=== PATIENT | female | born 1985 | race Caucasian/White ===

== ENCOUNTER 2017-04-21 10:04 | Day surgery (SDC) | payer OTHER ==
[~2017-04-21] VITALS: Ht 154.9 cm; Wt 71.2 kg
[~2017-04-21 10:04] MED LIST: FERR-57 PO; HYDR1CAP2 PO; HYDR1TAB PO; OXYC-12 PO; PREN1TAB39 PO
--- OUTSIDE RECORDS SUMMARY | 2017-04-21 10:09 | XMS REPORT ---
Author Author KAREN SERRANO Organization [facility] Address [address] [place] [address] Care Team Providers Care Superintendent Factory Name Role Phone KAREN SERRANO Unavailable PROBLEMS Type Condition ICD9-CM Code [id number] Code Onset Dates Condition Status SNOMED Code Assessment Seasonal allergic rhinitis due to pollen J30.1 Jan, Active 13858224 Assessment Overweight (BMI 25.0-29.9) E66.3 Jan, Active 781984300 Problem Screening for malignant neoplasm of the cervix V76.2 Active 889435929 Problem VARICELLA DX V05.4 Active Problem Unspecified viral infection, in conditions classified elsewhere and of unspecified site 079.99 Active 14203663 Problem state, incidental V22.2 Active 78091455 Problem General counseling for prescription of oral contraceptives V25.01 Active 090999296 Problem Unspecified breast screening V76.10 Active 758314740 ALLERGIES Substance Reaction Event Type Date Status N.K.D.A. Unknown Non Drug Allergy Jan, Unknown SOCIAL HISTORY No smoking Hx information available PLAN OF CARE VITAL SIGNS Height 60.5 in 2016-01-09 Weight 153.0 lbs 2016-01-09 Heart Rate 70 bpm 2016-01-09 Respiratory Rate 18 2016-01-09 BMI 29.39 kg/m2 2016-01-09 Blood pressure systolic 100 mmHg 2016-01-09 Blood pressure diastolic 68 mmHg 2016-01-09 MEDICATIONS Medication Instructions Dosage Frequency Start Date End Date Duration Status Fluticasone Propionate 50 MCG/ACT Nasally Once a day 1 spray in each nostril 24h Jan, 30 day(s) Active RESULTS No Results PROCEDURES Procedure Date Ordered Related Diagnosis Body Site Office Visit, Est Pt., Level 3 Jan 09, 2016 IMMUNIZATIONS No Known Immunizations
[2017-04-21 10:10] VITALS: BP 115/79
--- OUTSIDE RECORDS SUMMARY | 2017-04-21 10:10 | XMS REPORT | Continuity of Care Document ---
Author Author [facility] of [facility] Address Unknown Phone Unavailable Allergies Active Description Code Type Severity Reaction Onset Reported/Identified Relationship to Patient Clinical Status Yes No Known Drug Allergies [id number] Drug Allergy Unknown N/A 01/25/2011 Medications There is no data. 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, Routine 07/12/2010 V74.5 Std Screen 07/12/2010 FRANKLIN DO, COCO K V72.31 Casino Cage Cashier Exam, Routine 07/12/2010 FRANKLIN DO, COCO K V74.5 Std Screen 07/12/2010 FRANKLIN DO, COCO K V72.31 Casino Cage Cashier Exam, Routine 07/12/2010 FRANKLIN DO, COCO K V74.5 Std Screen 07/12/2010 ABILIO SHUTTLE THREADER, GARRICK A V72.31 Casino Cage Cashier Exam, Routine 07/12/2010 ABILIO SHUTTLE THREADER, GARRICK A V74.5 Std Screen 07/12/2010 RAJOTTE SHUTTLE THREADER, FELECIA A V72.31 Casino Cage Cashier Exam, Routine 07/12/2010 RAJOTTE SHUTTLE THREADER, FELECIA A V74.5 Std Screen 10/18/2010 646.60 Compl Of - Uti 10/18/2010 646.60 Compl Of - Uti 10/18/2010 FRANKLIN DO, COCO K 646.60 Compl Of - Uti 10/18/2010 COCO FRANKLIN DO K 646.60 Compl Of - Uti 10/18/2010 GARRICK KNOX APRN A 646.60 Compl Of - Uti 10/18/2010 FELECIA NIEVES APRN A 646.60 Compl Of - Uti 10/24/2010 616.10 Vaginitis And Vulvovaginitis Unspecified 10/24/2010 616.10 Vaginitis And Vulvovaginitis Unspecified 10/24/2010 COCO FRANKLIN DO K 616.10 Vaginitis And Vulvovaginitis Unspecified 10/24/2010 COCO FRANKLIN DO K 616.10 Vaginitis And Vulvovaginitis Unspecified 10/24/2010 GARRICK KNOX APRN A 616.10 Vaginitis And Vulvovaginitis Unspecified 10/24/2010 FELECIA NIEVES APRN A 616.10 Vaginitis And Vulvovaginitis Unspecified 11/21/2010 649.60 Uterine Size Date Discrepancy - Lga 11/21/2010 649.60 Uterine Size Date Discrepancy - Lga 11/21/2010 COCO FRANKLIN DO K 649.60 Uterine Size Date Discrepancy - Lga 11/21/2010 COCO FRANKLIN DO K 649.60 Uterine Size Date Discrepancy - Lga 11/21/2010 GARRICK KNOX APRN A 649.60 Uterine Size Date Discrepancy - Lga 11/21/2010 FELECIA NIEVES APRN A 649.60 Uterine Size Date Discrepancy - Lga 12/19/2010 657.00 Polyhydramnios Unspecified As To Episode Of Care 12/19/2010 698.9 Unspecified Pruritic Disorder 12/19/2010 657.00 Polyhydramnios Unspecified As To Episode Of Care 12/19/2010 698.9 Unspecified Pruritic Disorder 12/19/2010 COCO FRANKLIN DO 657.00 Polyhydramnios Unspecified As To Episode Of Care 12/19/2010 COCO FRANKLIN DO 698.9 Unspecified Pruritic Disorder 12/19/2010 COCO FRANKLIN DO 657.00 Polyhydramnios Unspecified As To Episode Of Care 12/19/2010 COCO FRANKLIN DO 698.9 Unspecified Pruritic Disorder 12/19/2010 REYNA KNOX APRNIDI A 657.00 Polyhydramnios Unspecified As To Episode Of Care 12/19/2010 REYNA KNOX APRNIDI A 698.9 Unspecified Pruritic Disorder 12/19/2010 FELECIA NIEVES APRN A 657.00 Polyhydramnios Unspecified As To Episode Of Care 12/19/2010 EZEQUIEL FOSTERNJUAN LUISYL A 698.9 Unspecified Pruritic Disorder 01/09/2011 649.60 Uterine Size Date Discrepancy Unspecified As To Episode Of Care Or Not Applicable 01/09/2011 649.60 Uterine Size Date Discrepancy Unspecified As To Episode Of Care Or Not Applicable 01/09/2011 COCO FRANKLIN DO 649.60 Uterine Size Date Discrepancy Unspecified As To Episode Of Care Or Not Applicable 01/09/2011 COCO FRANKLIN DO 649.60 Uterine Size Date Discrepancy Unspecified As To Episode Of Care Or Not Applicable 01/09/2011 GARRICK KNOX APRN A 649.60 Uterine Size Date Discrepancy Unspecified As To Episode Of Care Or Not Applicable 01/09/2011 FELECIA NIEVES APRN A 649.60 Uterine Size Date Discrepancy Unspecified As To Episode Of Care Or Not Applicable 01/17/2011 V04.81 Flu Shot 01/17/2011 V04.81 Flu Shot 01/17/2011 COCO FRANKLIN DO V04.81 Flu Shot 01/17/2011 COCO FRANKLIN DO V04.81 Flu Shot 01/17/2011 ABILIO FOSTERNREYNAGARRICK A V04.81 Flu Shot 01/17/2011 EZEQUIEL JAMES FELECIA A V04.81 Flu Shot 03/11/2011 715.90 OSTEOARTHROSIS UNSPECIFIED WHETHER GENERALIZED OR LOCALIZED INVOLVING UNSPECIFIED SITE 03/11/2011 V24.2 ROUTINE FOLLOW-UP 03/11/2011 V25.09 CONTRACEPTIVE COUNSELING - GENERAL 03/11/2011 V25.40 CONTRACEPTION SURVEILLANCE EXAM 03/11/2011 V25.49 CONTRACEPTION SURVEILLANCE (REPEAT RX) 03/11/2011 715.90 OSTEOARTHROSIS UNSPECIFIED WHETHER GENERALIZED OR LOCALIZED INVOLVING UNSPECIFIED SITE 03/11/2011 V24.2 ROUTINE FOLLOW-UP 03/11/2011 V25.09 CONTRACEPTIVE COUNSELING - GENERAL 03/11/2011 V25.40 CONTRACEPTION SURVEILLANCE EXAM 03/11/2011 V25.49 CONTRACEPTION SURVEILLANCE (REPEAT RX) 03/11/2011 FRANKLIN DOLATANYAA K 715.90 OSTEOARTHROSIS UNSPECIFIED WHETHER GENERALIZED OR LOCALIZED INVOLVING UNSPECIFIED SITE 03/11/2011 FRANKLIN DO COCO K V24.2 ROUTINE FOLLOW-UP 03/11/2011 FRANKLIN DO COCO K V25.09 CONTRACEPTIVE COUNSELING - GENERAL 03/11/2011 FRANKLIN DO COCO K V25.40 CONTRACEPTION SURVEILLANCE EXAM 03/11/2011 FRANKLIN DO COCO K V25.49 CONTRACEPTION SURVEILLANCE (REPEAT RX) 03/11/2011 FRANKLIN DO COCO K 715.90 OSTEOARTHROSIS UNSPECIFIED WHETHER GENERALIZED OR LOCALIZED INVOLVING UNSPECIFIED SITE 03/11/2011 FRANKLIN DO COCO K V24.2 ROUTINE FOLLOW-UP 03/11/2011 FRANKLIN DO COCO K V25.09 CONTRACEPTIVE COUNSELING - GENERAL 03/11/2011 LATANYA FRANKLIN DOA K V25.40 CONTRACEPTION SURVEILLANCE EXAM 03/11/2011 LATANYA FRANKLIN DOA K V25.49 CONTRACEPTION SURVEILLANCE (REPEAT RX) 03/11/2011 GARRICK KNOX APRN 715.90 OSTEOARTHROSIS UNSPECIFIED WHETHER GENERALIZED OR LOCALIZED INVOLVING UNSPECIFIED SITE 03/11/2011 GARRICK KNOX APRN A V24.2 ROUTINE FOLLOW-UP 03/11/2011 GARRICK KNOX APRN A V25.09 CONTRACEPTIVE COUNSELING - GENERAL 03/11/2011 REYNA KNOX APRNIDI A V25.40 CONTRACEPTION SURVEILLANCE EXAM 03/11/2011 GARRICK KNOX APRN A V25.49 CONTRACEPTION SURVEILLANCE (REPEAT RX) 03/11/2011 FELECIA NIEVES APRN 715.90 OSTEOARTHROSIS UNSPECIFIED WHETHER GENERALIZED OR LOCALIZED INVOLVING UNSPECIFIED SITE 03/11/2011 JUAN LUIS NIEVES APRNYL A V24.2 ROUTINE FOLLOW-UP 03/11/2011 JUAN LUIS NIEVES APRNYL A V25.09 CONTRACEPTIVE COUNSELING - GENERAL 03/11/2011 JUAN LUIS NIEVES APRNYL A V25.40 CONTRACEPTION SURVEILLANCE EXAM 03/11/2011 JUAN LUIS NIEVES APRNYL A V25.49 CONTRACEPTION SURVEILLANCE (REPEAT RX) 07/30/2012 V25.01 CONTRACEPTION - ORAL CONTRACEPTION 07/30/2012 V76.10 BREAST CANCER SCREENING 07/30/2012 COCO FRANKLIN DO V25.01 CONTRACEPTION - ORAL CONTRACEPTION 07/30/2012 COCO FRANKLIN DO V76.10 BREAST CANCER SCREENING 07/30/2012 COCO FRANKLIN DO V25.01 CONTRACEPTION - ORAL CONTRACEPTION 07/30/2012 COCO FRANKLIN DO V76.10 BREAST CANCER SCREENING 07/30/2012 GARRICK KNOX APRN A V25.01 CONTRACEPTION - ORAL CONTRACEPTION 07/30/2012 GARRICK KNOX APRN A V76.10 BREAST CANCER SCREENING 07/30/2012 FELECIA NIEVES APRN A V25.01 CONTRACEPTION - ORAL CONTRACEPTION 07/30/2012 FELECIA NIEVES APRN A V76.10 BREAST CANCER SCREENING 09/24/2012 COCO FRANKLIN DO V76.2 CERVICAL CANCER SCREENING (PAP SMEAR) 09/24/2012 COCO FRNAKLIN DO V76.2 CERVICAL CANCER SCREENING (PAP SMEAR) 09/24/2012 GARRICK KNOX APRN A V76.2 CERVICAL CANCER SCREENING (PAP SMEAR) 09/24/2012 FELECIA NIEVES APRN A V76.2 CERVICAL CANCER SCREENING (PAP SMEAR) 07/27/2013 COCO FRANKLIN DO V05.4 VARICELLA DX 07/27/2013 GARRICK KNOX APRN A V05.4 VARICELLA DX 07/27/2013 FELECIA NIEVES APRN A V05.4 VARICELLA DX 05/02/2014 FELECIA NIEVES APRN A 079.99 VIRAL SYNDROME 05/02/2014 FELECIA NIEVES APRN A V22.2 INCIDENTAL 05/11/2014 SENA BILLS DO Ot 644.03 THRT PRASANTH LABOR-ANTEPART 05/11/2014 SENA BILLS DO Ot 654.23 PREV DELIVERY, ANTEPARTUM COND 05/11/2014 SENA BILLS DO Ot 698.9 PRURITIC DISORDER NOS 05/25/2014 WILFRIDO SHEA, ELLSI P Ot 576.8 05/25/2014 WILFRIDO SHEA, ELLIS P Ot 646.83 06/13/2014 WILFRIDO SHEA, ELLIS P Ot 576.8 06/15/2014 WILFRIDO SHEA, ELLIS P Ot 576.8 06/15/2014 WILFRIDO SHEA, ELLIS P Ot 646.83 06/29/2014 WILFRIDO SHEA, ELLIS P Ot 576.8 06/29/2014 WILFRIDO SHEA, ELLIS P Ot 646.83 06/29/2014 WILFRIDO SHAE, ELLIS P Ot 576.8 11/24/2014 WILFRIDO SHEA, ELLIS P Ot 576.8 11/24/2014 WILFRIDO SHEA, ELLIS P Ot 646.83 11/24/2014 WILFRIDO SHEA, ELLIS P Ot 576.8 11/29/2014 WILFRIDO SHEA, ELLIS P Ot 576.8 11/29/2014 WILFRIDO SHEA, ELLIS P Ot 646.83 11/29/2014 WILFRIDO SHEA, ELLIS P Ot 576.8 08/13/2015 WILFRIDO SHEA, ELLIS P Ot 576.8 08/13/2015 WILFRIDO SHEA, ELLIS P Ot 646.83 08/13/2015 WILFRIDO SHEA, ELLIS P Ot 576.8 11/22/2015 WILFRIDO SHEA, ELLIS P Ot 576.8 DIS OF BILIARY TRACT NEC 11/22/2015 WILFRIDO SHEA, ELLIS P Ot 646.83 PREG COMPL NEC-ANTEPART 11/22/2015 WILFRIDO SHEA, ELLIS P Ot 576.8 DIS OF BILIARY TRACT NEC 12/04/2015 WILFRIDO SHEA, ELLIS P Ot 576.8 DIS OF BILIARY TRACT NEC 12/04/2015 WILFRIDO SHEA, ELLIS P Ot 646.83 PREG COMPL NEC-ANTEPART 12/04/2015 WILFRIDO SHEA, ELLIS P Ot 576.8 DIS OF BILIARY TRACT NEC 12/04/2015 WILFRIDO SHEA, ELLIS P Ot 576.8 DIS OF BILIARY TRACT NEC 12/04/2015 WILFRIDO SHEA, ELLIS P Ot 646.83 PREG COMPL NEC-ANTEPART 12/04/2015 WILFRIDO SHEA, ELLIS P Ot 576.8 DIS OF BILIARY TRACT NEC 12/04/2015 WILFRIDO SHEA, ELLIS P Ot 576.8 DIS OF BILIARY TRACT NEC 12/04/2015 WILFRIDO SHEA, ELLIS P Ot 646.83 PREG COMPL NEC-ANTEPART 12/04/2015 WILFRIDO SHEA, ELLIS P Ot 576.8 DIS OF BILIARY TRACT NEC 12/06/2015 WILFRIDO SHEA, ELLIS P Ot 576.8 DIS OF BILIARY TRACT NEC 12/06/2015 WILFRIDO SHEA, ELLIS P Ot 646.83 PREG COMPL NEC-ANTEPART 12/06/2015 WILFRIDO SHEA, ELLIS P Ot 576.8 DIS OF BILIARY TRACT NEC 12/08/2015 WILFRIDO SHEA, ELLIS P Ot 576.8 DIS OF BILIARY TRACT NEC 12/08/2015 WILFRIDO SHEA, ELLIS P Ot 646.83 PREG COMPL NEC-ANTEPART 12/08/2015 WILFRIDO SHEA, ELLIS P Ot 576.8 DIS OF BILIARY TRACT NEC 01/02/2016 WILFRIDO SHEA, ELLIS P Ot 576.8 DIS OF BILIARY TRACT NEC 01/02/2016 WILFRIDO SHEA, ELLIS P Ot 646.83 PREG COMPL NEC-ANTEPART 01/02/2016 WILFRIDO SHEA, ELLIS P Ot 576.8 DIS OF BILIARY TRACT NEC Procedures Code [place] [address] PAP SMEAR 09/24/2012 Q0091 PAP SMEAR OBTAIN SMEAR 09/24/2012 95599 INFLUENZA A & B (IN-HOUSE) 05/02/2014 Results There is no data. Encounters ACCT No. Visit Date/Time Discharge Status Pt. Type Provider Facility Loc./Unit Complaint [id number] 05/02/2014 11:50:00 05/02/2014 23:59:59 CLS Outpatient FELECIA NIEVES APRN [id number] 08/11/2013 17:14:00 08/11/2013 23:59:59 CLS Outpatient GARRICK KNOX APRN [id number] 07/27/2013 15:38:00 07/27/2013 23:59:59 CLS Outpatient COCO FRANKLIN DO [id number] 09/24/2012 09:31:00 09/24/2012 23:59:59 CLS Outpatient COCO FRANKLIN DO [id number] 07/30/2012 13:42:00 07/30/2012 23:59:59 CLS Outpatient [id number] 05/28/2011 10:46:00 05/28/2011 23:59:59 CLS Outpatient [id number] 05/25/2014 09:10:00 05/25/2014 23:59:59 CLS Outpatient ELLIS ANNA MD [facility] RAD CHOLESTASIS [id number] 05/16/2014 13:28:00 05/16/2014 23:59:59 CLS Outpatient ELLIS ANNA MD [facility] RAD CHOLESTASIS [id number] 05/11/2014 12:45:00 05/11/2014 20:25:00 DIS Outpatient SENA BILLS DO [facility] WSo C/O CONTRACTIONS
[2017-04-21] MEDS ORDERED: ceFAZolin 1 GM/NS 50 ML IVPB IV ONE ×2 (10:30)
[2017-04-21] MEDS ORDERED: CATHETER FLUSH 10 ML SYR IV PRN (10:30)
[2017-04-21 10:39] LABS: BASOPHILS % (AUTO) 0 % (0-10); EOSINOPHILS # (AUTO) 0.2 10^3/uL (0.0-0.3); EOSINOPHILS % (AUTO) 3 % (0-10); LYMPHOCYTES # (AUTO) 2.2 X 10^3 (1.0-4.0); LYMPHOCYTES % (AUTO) 25 % (12-44); MEAN CORPUSCULAR HEMOGLOBIN 32 PG (25-34); MEAN CORPUSCULAR HGB CONC 34 G/DL (32-36); MEAN CORPUSCULAR VOLUME 93 FL (80-99); MEAN PLATELET VOLUME 8.9 FL (7.4-10.4); MONOCYTES # (AUTO) 0.4 X 10^3 (0.0-1.0); MONOCYTES % (AUTO) 5 % (0-12); NEUTROPHILS # (AUTO) 5.8 X 10^3 (1.8-7.8); NEUTROPHILS % (AUTO) 67 % (42-75); PLATELET COUNT 386 10^3/uL (130-400); RED BLOOD COUNT 4.24 10^6/uL (4.35-5.85); RED CELL DISTRIBUTION WIDTH 12.1 % (10.0-14.5); WHITE BLOOD COUNT 8.6 10^3/uL (4.3-11.0)
[2017-04-21] MEDS ORDERED: proPOfol 200 MG/20 ML (DIPRIVAN) VIAL IV ONE (11:18)
[2017-04-21] MEDS ORDERED: LIDOCAINE PF 2% 5 ML (XYLOCAINE) VIAL ONE ×2 (11:18→12:44)
[2017-04-21] MEDS ORDERED: fentaNYL INJECTION 100 MCG/2 ML AMP ONE (11:19)
[2017-04-21] MEDS ORDERED: MIDAZOLAM 2 MG/2 ML (VERSED) VIAL ONE (11:19)
[2017-04-21] MEDS ORDERED: D5 LR IV SOLUTION 1,000 ML IV SCH (12:05)
[2017-04-21] MEDS ORDERED: OXYC-465 PO (12:08)
--- NOTE | 2017-04-21 12:09 | Progress Note-Pre Operative ---
Pre-Operative Progress Note H&P Reviewed The H&P was reviewed, patient examined and no changes noted. Date Seen by Provider: Apr 21, 2017 Time Seen by Provider: 12:09 Date H&P Reviewed: Apr 21, 2017 Time H&P Reviewed: 12:09 Pre-Operative Diagnosis: missed /intrauterine demise ZULLY GARAY MD Apr 21, 2017 12:09 pm
--- NOTE | 2017-04-21 12:09 | Discharge Instructions ---
Discharge Instructions Discharge Medications New, Converted or Re-Newed RX: RX on Chart Patient Instructions Patient Instructions: as directed Return to The Hospital For: as directed Activity & Diet Discharge Diet: No Restrictions Activity as Tolerated: No Orders-Post D/C & Referrals Follow Up Appt: Call to make follow up appt. for patient in 2 weeks. Activity: Rest for 24 hours, than as tolerated. Diet: As tolerated-Clear Liquids only if nauseated. May shower or tub bathe as desired. No driving for 24 hours, no alcoholic beverages for 24 hours, and nothing per vagina (no tampons, douching, or intercourse) for 2 weeks. Patient to return to the clinic as soon as possible for: Temperature greater than 101F, Severe Pain, Foul discharge from incision or vagina, Excessive Bleeding (more than a period). ZULLY GARAY MD Apr 21, 2017 12:09 pm
--- NOTE | 2017-04-21 12:10 | Progress Note-Post Operative ---
Post-Operative Progess Note Surgeon (s)/Manager Regional (s) Surgeon ZULLY GARAY MD Manager Regional: none Pre-Operative Diagnosis missed /intrauterine demise Post-Operative Diagnosis same with pathology pending Procedure & Operative Findings Date of Procedure 04/21/17 Procedure Performed/Findings D&C Anesthesia Type Gen. endotracheal Estimated Blood Loss Estimated blood loss (mL): lless than 100cc Specimens/Packing Specimens Removed products of conception/uterine contents Packing: none ZULLY GARAY MD Apr 21, 2017 12:10
[2017-04-21] MEDS ORDERED: oxyCODONE/APAP 10/325MG (PERCOCET 10) TABLET PO PRN (12:15)
[2017-04-21] MEDS ORDERED: KETOROLAC 30 MG/ML VIAL IVP ONE ×2 (12:15→13:00)
[2017-04-21] MEDS ORDERED: ONDANSETRON 4 MG/2 ML (SDV) Z0FRAN IVP PRN ×2 (12:15→13:00)
[2017-04-21] MEDS ORDERED: PROMETHAZINE INJ 25 MG/ML (PHENERGAN) AMP IM ONE (12:15)
[2017-04-21] MEDS ORDERED: MEPERIDINE (DEMEROL) INJ 100 MG/ML IM ONE (12:15)
[2017-04-21] MEDS ORDERED: DEXAMETHASONE 10 MG/ML (DECADRON) 1 ML VIAL ONE (12:44)
[2017-04-21] MEDS ORDERED: ONDANSETRON 4 MG/2 ML (SDV) Z0FRAN ONE (12:44)
--- NOTE | 2017-04-21 12:56 | History & Physical ---
History and Physical Date Seen by Provider: Apr 21, 2017 Time Seen by Provider: 12:10 this patient is a 32-year-old female who is acting a surrogate for this . initially started a viable however demise was diagnosed last week. Patient presents now for D&C. Allergies are none Medications are vitamins Medical social and surgical history is as well as family and obstetric histories are per her H&P of March 2017 H ENT exam is normal Neck is supple no lymphadenopathy no thyromegaly Abdomen is soft nontender nondistended Extreme show clubbing cyanosis. There is no Homans sign. Pelvic exam is deferred Assessment and plan partially 9 week with demise/missed . Plan is for D&C. Surgical risk complication recovering follow-up have been fully discussed. All the patient's questions were answered and she is prepared to proceed. Allergies and Home Medications Allergies Coded Allergies: No Known Drug Allergies (Unverified , 01/25/11) Home Medications Hydrocodone Bit/Acetaminophen 1 Each Capsule, 1 EACH PO Q 4 - 6 HRS PRN, ( Reported) Oxycodone HCl/Acetaminophen 1 Each Tablet, 1-2 TAB PO Q4H PRN for PAIN, #30 Prescribed by: ZULLY MENDEZ on 04/21/17 1208 ZULLY GARAY MD Apr 21, 2017 12:55 pm
[2017-04-21] MEDS ORDERED: fentaNYL INJECTION 100 MCG/2 ML AMP IVP PRN (13:00)
[2017-04-21] MEDS ORDERED: morphine INJ 10 MG/ML 1ML (SYR OR VIAL) IVP PRN (13:00)
[2017-04-21 13:50] VITALS: BP 108/71
[2017-04-21 14:20] VITALS: BP 103/73
--- NOTE | 2017-04-21 20:44 | OPERATIVE REPORT ---
DATE OF SERVICE: 04/21/2017 PREOPERATIVE DIAGNOSIS: Intrauterine demise/missed . POSTOPERATIVE DIAGNOSIS: Intrauterine demise/missed . OPERATIVE PROCEDURE: D and C. OPERATIVE DESCRIPTION: With the patient in the supine position under satisfactory general anesthesia, she was repositioned in dorsal lithotomy position in candycane stirrups and prepped and draped in the usual process for vaginal surgery. The urinary bladder was emptied with a straight catheter. The gestational sac was present at the cervix. It was removed intact and sent to pathology for handling. The patient had requested genetic studies on this tissue. The bag was intact with a small fetus visible inside. The cervix was now grasped anteriorly with single tooth tenaculum. The uterus was sounded to 9 cm with the uterine sound. The cervix was then serially dilated with Zoltan dilators to accommodate. A #10 curved sucking curet was introduced and the uterine cavity curettaged with removal of a moderate amount of trophoblastic appearing tissue, placental tissue, some blood clot and some debris. The uterine cavity was then sharply curettaged in all 4 quadrants and suction curet was reintroduced and all blood clot and debris evacuated from the uterus. The tenaculum was removed. There was no bleeding from the puncture sites. There was no bleeding from the cervical os. The uterus had been 10 to 12 week size prior to initiating the procedure. It was now 8 to 10 week size and nicely contracted. The patient was uneventfully awakened now from her general anesthesia and transferred to recovery room in stable condition with plans for discharge home PAR. Sponge and needle counts were correct. ESTIMATED BLOOD LOSS: Less than 100 mL. The patient tolerated the procedure well. Job ID: [id number] DocumentID: [id number] Dictated Date: 04/21/2017 12:37:50 Deep Tissue Massage Therapist Date: 04/21/2017 20:43:51 Dictated By: ZULLY GARAY MD
== END 2017-04-21 14:40 | disposition home or self-care (01) ==
LOC: SDC 10:04
PROVIDERS: ATTEND Obstetrics & Gynecology
DX: O02.1 Missed abortion (principal); Z3A.09 9 weeks gestation of pregnancy
CPT/HCPCS: 36415; 85025; 86850; 86900; 86901; 87081; 88233; 88262

== ENCOUNTER 2018-03-06 09:50 | Outpatient (CLI) | payer OTHER ==
[~2018-03-06 09:50] MED LIST changes: +OXYC-465 PO
[2018-03-06 10:47] VITALS: BP 110/57
--- NOTE | 2018-03-09 17:50 | Physician Query-Final Dx ---
MALENA HARRIS 03/09/18 1750: Clinic Account Progress/Dx Physician Query: Please give diagnosis Date of Service Mar 06, 2018 at 09:50 ZULLY GARAY MD 03/10/18 0738: Clinic Account Progress/Dx DIAGNOSIS: Diagnosis DECREASED MOVEMENT AT 33 WEEKS GESTATION MALENA HARRIS Mar 09, 2018 17:50 ZULLY GARAY MD Mar 10, 2018 07:38
== END 2018-03-06 10:31 | disposition home or self-care (01) ==
LOC: WSo 09:50 → LDRP 09:50 → WSo 10:31
PROVIDERS: ATTEND Obstetrics & Gynecology
DX: O36.8130 Decreased fetal movements, third trimester, not applicable or unspecified (principal); Z3A.33 33 weeks gestation of pregnancy
CPT/HCPCS: 59025

== ENCOUNTER 2018-04-14 08:47 | Outpatient (CLI) | payer OTHER ==
[~2018-04-14] VITALS: Ht 154.9 cm; Wt 88.0 kg
[2018-04-14] MEDS ORDERED: PNV1TABL81 PO (08:58)
[2018-04-14 09:04] VITALS: BP 108/65
== END 2018-04-14 09:20 | disposition home or self-care (01) ==
LOC: PREOP 08:47
PROVIDERS: ATTEND Obstetrics & Gynecology
DX: Z01.818 Encounter for other preprocedural examination (principal)
CPT/HCPCS: 87081

== ENCOUNTER 2018-04-21 13:00 | Inpatient (IN) | payer OTHER ==
[~2018-04-21] VITALS: Ht 154.9 cm; Wt 88.5 kg
[~2018-04-21 13:00] MED LIST changes: +PNV1TABL81 PO
--- OUTSIDE RECORDS SUMMARY | 2018-04-24 09:26 | XMS REPORT ---
Author Author FREDERIC BOLANOS [facility] Address [address] [place] [address] Care Team Providers Care Administrative Asst Name Role Phone FREDERIC BOLANOS Unavailable PROBLEMS Type Condition ICD9-CM Code FQL68-RY Code Onset Dates Condition Status SNOMED Code Problem Unspecified viral infection, in conditions classified elsewhere and of unspecified site 079.99 Active 85541605 Problem state, incidental V22.2 Active 98994181 Problem Unspecified breast screening V76.10 Active 109390354 Problem Screening for malignant neoplasm of the cervix V76.2 Active 302510495 Problem VARICELLA DX V05.4 Active 964333957 Problem General counseling for prescription of oral contraceptives V25.01 Active [id number] ALLERGIES No Information ENCOUNTERS Encounter Location Date Diagnosis [place] [address] [address] Dec, Encounter for immunization Z23 [place] [address] [address] Aug, Encounter for other contraceptive management Z30.8 [place] [address] [address] Aug, [place] [address] [address] Aug, Routine gynecological examination Z01.419 [facility] [address] [address] Jul, Strain of neck muscle, initial encounter S16.1XXA [place] [address] [address] 06 Jan, 2016 Seasonal allergic rhinitis due to pollen J30.1 and Overweight (BMI 25.0-29.9) E66.3 [facility] [address] [place] [id number] [address] 18 Jun, 2015 Encounter for test Z32.00 [facility] [id number] [address] Aug, [facility] [id number] [address] Apr, [facility] [address] [facility] [id number] [address] Apr, [facility] [address] [place] [id number] [place] [address] Apr, [facility] [id number], [place] [address] Apr, [facility] [id number] [address] Aug, [facility] [id number] [address] Aug, [facility] [id number], [place] [address] Jul, [facility] [id number] [address] Jul, [facility] [id number], [place] [address] Jun, [facility] [address] [place] [id number] [address] Jun, [facility] [address] [place] [id number] [address] Nov, [facility] [address] [facility] [id number], [place] [address] September, [facility] [id number], [place] [address] September, [facility] [address] [id number] [place] [address] September, [facility] [address] [id number] [place] [address] September, [facility] [place] [facility] [address] [id number] [place] [address] Jul, [facility] [place] [facility] [address] [id number] [place] [address] Jul, [facility] [place] [facility] [address] [id number] [place] [address] Oct, [facility] [place] [facility] [address] [id number] [place] [address] Aug, [facility] [place] [facility] [address] [id number] [place] [address] May, [facility] [place] [facility] [address] [id number] [place] [address] Mar, [facility] [place] [facility] [address] [id number] [place] [address] Mar, [facility] [place] [facility] [address] [id number] [place] [address] 19 Jan, 2011 [facility] [place] [facility] [address] [id number] [place] [address] 15 Jan, 2011 [facility] [place] [facility] [address] [id number] [place] [address] 17 Dec, 2010 [facility] [place] [facility] [address] [id number] [place] [address] 20 Nov, 2010 [facility] [place] [facility] [address] [id number] [place] [address] 16 Oct, 2010 [facility] [place] [facility] [address] [id number] [place] [address] 10 Jul, 2010 [facility] [place] [facility] [address] [id number] [place] [address] 10 Jun, 2010 IMMUNIZATIONS Vaccine Route Administration Date Status TDAP (BOOSTRIX) IM Intramuscular Dec 31, 2017 Administered SOCIAL HISTORY Never Assessed REASON FOR VISIT Immunization(s)--tcuppettRN PLAN OF CARE VITAL SIGNS MEDICATIONS Unknown Medications RESULTS No Results PROCEDURES Procedure Date Ordered Result Body Site TDAP (BOOSTRIX) Dec 31, 2017 SINGLE IMMUNIZATION ADMIN Dec 31, 2017 INSTRUCTIONS MEDICATIONS ADMINISTERED No Known Medications MEDICAL (GENERAL) HISTORY Type Description Date Surgical History C- section x 2 Surgical History cholecystectomy
--- OUTSIDE RECORDS SUMMARY | 2018-04-24 09:26 | XMS REPORT | Continuity of Care Document ---
Author Author [facility] Address Unknown Phone Unavailable Allergies Active Description Code Type Severity Reaction Onset Reported/Identified Relationship to Patient Clinical Status Yes No Known Drug Allergies [id number] Drug Allergy Unknown N/A 01/25/2011 Medications There is no data. Problems Date Dx Coded Attending Type Code Diagnosis Diagnosed By 06/14/2010 V22.0 , Normal First 06/14/2010 V22.0 , Normal First 06/14/2010 FRANKLIN DO, COCO K V22.0 , Normal First 06/14/2010 FRANKLIN DO, COCO K V22.0 , Normal First 06/14/2010 ABILIO BLEACHER LARD, GARRICK A V22.0 , Normal First 06/14/2010 RAJOTTE BLEACHER LARD, FELECIA A V22.0 , Normal First 07/12/2010 V72.31 [employer] Exam, Routine 07/12/2010 V74.5 Std Screen 07/12/2010 V72.31 [employer] Exam, Routine 07/12/2010 V74.5 Std Screen 07/12/2010 FRANKLIN DO, COCO K V72.31 [employer] Dist[employer] Exam, Routine 07/12/2010 FRANKLIN DO, COCO K V74.5 Std Screen 07/12/2010 FRANKLIN DO, COCO K V72.31 [employer] Dist[employer] Exam, Routine 07/12/2010 FRANKLIN DO, COCO K V74.5 Std Screen 07/12/2010 ABILIO BLEACHER LARD, GARRICK A V72.31 [employer] Exam, Routine 07/12/2010 ABILIO BLEACHER LARD, GARRICK A V74.5 Std Screen 07/12/2010 RAJOTTE BLEACHER LARD, FELECIA A V72.31 [employer] Exam, Routine 07/12/2010 RAJOTTE BLEACHER LARD, FELECIA A V74.5 Std Screen 10/18/2010 646.60 [...] CERVICAL CANCER SCREENING (PAP SMEAR) 09/24/2012 COCO FRANKLIN DO V76.2 CERVICAL CANCER [...] 698.9 PRURITIC DISORDER NOS 05/25/2014 WILFRIDO SHEA, ELLIS P Ot 576.8 05/25/2014 WILFRIDO SHEA, ELLIS P Ot 646.83 06/13/2014 WILFRIDO SHEA, ELLIS P Ot 576.8 06/15/2014 WILFRIDO SHEA, ELLIS P Ot 576.8 06/15/2014 WILFRIDO SHEA, ELLIS P Ot 646.83 06/29/2014 WILFRIDO SHEA, ELLIS P Ot 576.8 06/29/2014 WILFRIDO SHEA, ELLIS P Ot 646.83 06/29/2014 WILFRIDO SHEA, ELLIS P Ot 576.8 11/24/2014 [...] P Ot 646.83 PREG COMPL NEC-ANTEPART 12/04/2015 WLIFRIDO SHEA, ELLIS P Ot 576.8 DIS OF [...] Ot 576.8 DIS OF BILIARY TRACT NEC 04/21/2017 WILFRIDO SHEA, ELLIS P Ot 576.8 DIS OF BILIARY TRACT NEC 04/21/2017 WILFRIDO SHEA, ELLIS P Ot 646.83 PREG COMPL NEC-ANTEPART 04/21/2017 WILFRIDO SHEA, ELLIS P Ot 576.8 DIS OF BILIARY TRACT NEC 04/21/2017 ZULLY GARAY MD Ot O02.1 MISSED 04/21/2017 ZULLY GARAY MD Ot Z3A.09 9 WEEKS GESTATION OF 04/22/2017 ZULLY GARAY MD Ot O02.1 MISSED 04/22/2017 ZULLY GARAY MD, Ot Z3A.09 9 WEEKS GESTATION OF 03/06/2018 ZULLY GARAY MD, Ot O36.8130 DECREASED MOVEMENTS, THIRD TRIMEST 03/06/2018 ZULLY GARAY MD, Ot Z3A.33 33 WEEKS GESTATION OF 03/10/2018 ZULLY GARAY MD, Ot O36.8130 DECREASED MOVEMENTS, THIRD TRIMEST 03/10/2018 TANISHA SHEA, ZULLY Hdez Ot Z3A.33 33 WEEKS GESTATION OF 04/15/2018 TANISHA SHEA, ZULLY Hdez Ot Z01.818 ENCOUNTER FOR OTHER PREPROCEDURAL EXAMIN Procedures Code [place] [address] PAP SMEAR 09/24/2012 Q0091 PAP SMEAR OBTAIN SMEAR 09/24/2012 37904 INFLUENZA A & B (IN-HOUSE) 05/02/2014 Results Test Result Range Complete blood count (CBC) with automated white blood cell (WBC) differential - 04/21/17 10:29 Blood leukocytes automated count (number/volume) 8.6 10*3/uL 4.3-11.0 Blood erythrocytes automated count (number/volume) 4.24 10*6/uL 4.35-5.85 Venous blood hemoglobin measurement (mass/volume) 13.4 g/dL 11.5-16.0 Blood hematocrit (volume fraction) 40 % 35-52 Automated erythrocyte mean corpuscular volume 93 [foz_us] 80-99 Automated erythrocyte mean corpuscular hemoglobin (mass per erythrocyte) 32 pg 25-34 Automated erythrocyte mean corpuscular hemoglobin concentration measurement ( mass/volume) 34 g/dL 32-36 Automated erythrocyte distribution width ratio 12.1 % 10.0-14.5 Automated blood platelet count (count/volume) 386 10*3/uL 130-400 Automated blood platelet mean volume measurement 8.9 [foz_us] 7.4-10.4 Automated blood neutrophils/100 leukocytes 67 % 42-75 Automated blood lymphocytes/100 leukocytes 25 % 12-44 Blood monocytes/100 leukocytes 5 % 0-12 Automated blood eosinophils/100 leukocytes 3 % 0-10 Automated blood basophils/100 leukocytes 0 % 0-10 Blood neutrophils automated count (number/volume) 5.8 10*3 1.8-7.8 Blood lymphocytes automated count (number/volume) 2.2 10*3 1.0-4.0 Blood monocytes automated count (number/volume) 0.4 10*3 0.0-1.0 Automated eosinophil count 0.2 10*3/uL 0.0-0.3 Automated blood basophil count (count/volume) 0.0 10*3/uL 0.0-0.1 Blood type T Indirect antibody screen panel - 04/21/17 10:29 ABO+Rh group OP NRG Transfusion band number [id number] NRG Blood group antibody screen NEGATIVE NRG Methicillin resistant Staphylococcus aureus (MRSA) screening culture - 10:40 Methicillin resistant Staphylococcus aureus (MRSA) screening culture NEG NRG Methicillin resistant Staphylococcus aureus (MRSA) screening culture - 09:12 Methicillin resistant Staphylococcus aureus (MRSA) screening culture NEG NRG Encounters ACCT No. Visit Date/Time Discharge Status Pt. Type Provider Facility Loc./Unit Complaint [id number] 05/02/2014 11:50:00 05/02/2014 23:59:59 CLS Outpatient FELECIA NIEVES APRN Daisha [id number] 08/11/2013 17:14:00 08/11/2013 23:59:59 CLS Outpatient ABILIO FOSTERNREYNAGARRICK A [id number] 07/27/2013 15:38:00 07/27/2013 23:59:59 CLS Outpatient COCO FRANKLIN DO [id number] 09/24/2012 09:31:00 09/24/2012 23:59:59 CLS Outpatient COCO FRANKLIN DO [id number] 07/30/2012 13:42:00 07/30/2012 23:59:59 CLS Outpatient [id number] 05/28/2011 10:46:00 05/28/2011 23:59:59 CLS Outpatient [id number] 04/14/2018 08:47:00 04/14/2018 09:20:00 DIS Outpatient ZULLY GARAY MD [facility] PREOP PREVIOUS [id number] 03/06/2018 09:50:00 03/06/2018 10:31:00 DIS Outpatient ZULLY GARAY MD [facility] WSo NST [id number] 04/21/2017 10:04:00 04/21/2017 14:40:00 DIS Outpatient ZULLY GARAY MD [facility] SDC DEMISE [id number] 05/25/2014 09:10:00 05/25/2014 23:59:59 CLS Outpatient ELLIS ANNA MD [facility] RAD CHOLESTASIS [id number] 05/16/2014 13:28:00 05/16/2014 23:59:59 CLS Outpatient WILFRIDO SHEA, ELLIS Martinez [facility] RAD CHOLESTASIS [id number] 05/11/2014 12:45:00 05/11/2014 20:25:00 DIS Outpatient SENA BILLS DO [facility] WSo C/O CONTRACTIONS [id number] 04/24/2018 08:57:00 ACT Inpatient TANISHA SHEA, ZULLY Hdez [facility] LDRP PREVIOUS
[2018-04-24 09:33] VITALS: BP 111/63
[2018-04-24] MEDS ORDERED: metroNIDAZOLE 500MG/100ML IVPB 100 ML IV ONE ×2 (10:00→11:00)
[2018-04-24] MEDS ORDERED: ceFAZolin 2 GM IV Premixed 50 ML IV ONE (10:00)
[2018-04-24 10:05] VITALS: BP 110/67
[2018-04-24 10:17] LABS: BASOPHILS % (AUTO) 0 % (0-10); EOSINOPHILS # (AUTO) 0.1 10^3/uL (0.0-0.3); EOSINOPHILS % (AUTO) 1 % (0-10); HEMATOCRIT 37 % (35-52); HEMOGLOBIN 12.1 G/DL (11.5-16.0); LYMPHOCYTES # (AUTO) 1.8 X 10^3 (1.0-4.0); LYMPHOCYTES % (AUTO) 20 % (12-44); MEAN CORPUSCULAR HEMOGLOBIN 31 PG (25-34); MEAN CORPUSCULAR HGB CONC 33 G/DL (32-36); MEAN CORPUSCULAR VOLUME 92 FL (80-99); MEAN PLATELET VOLUME 9.4 FL (7.4-10.4); MONOCYTES # (AUTO) 0.4 X 10^3 (0.0-1.0); MONOCYTES % (AUTO) 5 % (0-12); NEUTROPHILS # (AUTO) 6.9 X 10^3 (1.8-7.8); NEUTROPHILS % (AUTO) 75 % (42-75); PLATELET COUNT 277 10^3/uL (130-400); RED BLOOD COUNT 3.96 10^6/uL (4.35-5.85); RED CELL DISTRIBUTION WIDTH 13.7 % (10.0-14.5); WHITE BLOOD COUNT 9.2 10^3/uL (4.3-11.0)
[2018-04-24] MEDS ORDERED: FAMOTIDINE 20MG/2ML IV (PEPCID) ONE (10:25)
[2018-04-24] MEDS ORDERED: NS (IVPB) 0 ML ONE (10:25)
[2018-04-24] MEDS ORDERED: CITRIC ACID/SOB CIT (BICITRA) 30 ML UDC ONE (10:25)
[2018-04-24] MEDS ORDERED: METOCLOPRAMIDE INJ 10 MG/2 ML (REGLAN) ONE (10:25)
[2018-04-24] MEDS ORDERED: AZITHROMYCIN 500 MG (ZITHROMAX) VIAL ONE (10:25)
[2018-04-24] MEDS ORDERED: metroNIDAZOLE 500MG/100ML IVPB 100 ML ONE (10:25)
[2018-04-24] MEDS ORDERED: LACTATED RINGERS 1,000 ML IV PRN ×2 (10:32)
[2018-04-24 10:35] VITALS: BP 104/64
[2018-04-24] MEDS ORDERED: ceFAZolin 2 GM IV Premixed 50 ML ONE (10:36)
[2018-04-24] MEDS ORDERED: CITRIC ACID/SOB CIT (BICITRA) 30 ML UDC PO ONE (10:45)
[2018-04-24] MEDS ORDERED: CATHETER FLUSH 10 ML SYR IV PRN (10:45)
[2018-04-24] MEDS ORDERED: METOCLOPRAMIDE INJ 10 MG/2 ML (REGLAN) IV ONE (10:45)
[2018-04-24] MEDS ORDERED: FAMOTIDINE 20MG/2ML IV (PEPCID) IV ONE (10:45)
[2018-04-24] MEDS ORDERED: fentaNYL INJECTION 100 MCG/2 ML AMP ONE (10:48)
[2018-04-24] MEDS ORDERED: KETAMINE HCL 100 MG/ML 5 ML VIAL ONE (10:49)
[2018-04-24] MEDS ORDERED: BUPIVACAINE SPINAL 0.75% (SENSORCAINE) 2 ML AMP ONE (10:50)
[2018-04-24] MEDS ORDERED: D5 LR IV SOLUTION 1,000 ML IV SCH (10:51)
[2018-04-24] MEDS ORDERED: LIDOCAINE PF 1% 5 ML (XYLOCAINE) AMP ONE (10:54)
[2018-04-24] MEDS ORDERED: OXYTOCIN/NORMAL SALINE 500 ML IV SCH (10:54)
--- NOTE | 2018-04-24 10:59 | History & Physical ---
History and Physical Date Seen by Provider: Apr 24, 2018 Time Seen by Provider: 10:56 This patient is a 32-year-old 2 A1 white female who is carrying a surrogate . She is admitted now 38 weeks gestation with history of cholestasis of . She denies rupture membranes or bleeding. She's had no problems with this . Her GBS culture was negative. Allergies are none Medications are vitamins Past medical history/surgical history/family history/obstetric history is per the antepartum record HEENT exam is normal Neck is supple no lymphadenopathy no thyromegaly Abdomen is gravid soft nontender nondistended Extreme show no clubbing cyanosis. There is no Homans sign. Pelvic exam is deferred Assessment and plan term 38 weeks gestation with 2 previous C- sections and a history of cholestasis of with slightly elevated bile acids. Plan is for repeat delivery now versus a surrogate and the biologic parents are in hand Allergies and Home Medications Allergies Coded Allergies: No Known Drug Allergies (Unverified , 01/25/11) Home Medications Pnv No.122/Iron/Folic Acid 1 Each Tablet, 1 EACH PO DAILY, (Reported) Patient Home Medication List Home Medication List Reviewed: Yes Clinical Quality Measures DVT/VTE Risk/Contraindication: Risk Factor Score Per Nursin RFS Level Per Nursing on Admit: 2=Moderate ZULLY GARAY MD Apr 24, 2018 10:59
[2018-04-24] MEDS ORDERED: TETANUS,DIPTH,PERTUSS P/F (BOOSTRIX) 0.5 ML VIAL IM ONE (11:00)
[2018-04-24] MEDS ORDERED: MEASLES,MUMPS,RUBELLA 1 EA INJ SC ONE (11:00)
[2018-04-24] MEDS ORDERED: MEPERIDINE (DEMEROL) INJ 100 MG/ML IM PRN (11:00)
[2018-04-24] MEDS ORDERED: PROMETHAZINE INJ 25 MG/ML (PHENERGAN) AMP IM PRN (11:00)
[2018-04-24] MEDS ORDERED: ceFAZolin INJECTION 2,000 MG in NS (IVPB) 50 ML IV ONE (11:00)
[2018-04-24] MEDS ORDERED: ONDANSETRON 4 MG/2 ML (SDV) Z0FRAN IVP PRN (11:00)
[2018-04-24] MEDS ORDERED: D5 LR IV SOLUTION 1,000 ML IV ONE (11:02)
[2018-04-24] MEDS: KETOROLAC 30 MG/ML VIAL IVP SCH ×2 (11:45→21:12)
[2018-04-24] MEDS ORDERED: KETOROLAC 30 MG/ML VIAL ONE (11:49)
[2018-04-24] MEDS ORDERED: ONDANSETRON 4 MG/2 ML (SDV) Z0FRAN ONE (11:49)
[2018-04-24] MEDS ORDERED: OXYTOCIN/NORMAL SALINE 500 ML IV ONE ×2 (11:53→11:59)
[2018-04-24] MEDS ORDERED: DOCU100C37 PO (12:23)
[2018-04-24] MEDS ORDERED: OXYC1TAB12 PO (12:23)
[2018-04-24] MEDS ORDERED: IBUP-1780 PO (12:23)
--- NOTE | 2018-04-24 12:25 | Discharge Instructions ---
Discharge Instructions Discharge Medications New, Converted or Re-Newed RX: RX on Chart Patient Instructions Patient Instructions: DIRECTED Return to The Hospital For: As directed Activity & Diet Discharge Diet: No Restrictions Activity as Tolerated: No Orders-Post D/C & Referrals Follow Up Appt: RTC 1 week for incision check. Call to make follow up appt. for patient in 4 weeks. Wound Care: Remove daniel, apply benzoin and steri strips. Activity Per routine post instructions. Please call in RX to patient pharmacy. Diet as tolerated Patient may shower or tub bathe as desired. Continue home meds ZULLY GARAY MD Apr 24, 2018 12:25
[2018-04-24 13:34] VITALS: BP 108/63
[2018-04-24] MEDS: oxyCODONE/APAP 10/325MG (PERCOCET 10) TABLET PO PRN ×2 (15:45→21:29)
[2018-04-24 17:07] VITALS: BP 105/56
[2018-04-24] MEDS: DOCUSATE SODIUM 100 MG (COLACE) CAP PO SCH (21:12)
[2018-04-24 21:30] VITALS: BP 104/55
[2018-04-25 01:30] VITALS: BP 110/58
--- NOTE | 2018-04-25 03:42 | OPERATIVE REPORT ---
DATE OF SERVICE: 04/24/2018 DELIVERY NOTE DATE OF DELIVERY: 04/24/2018. The patient delivered by repeat delivery at 38 weeks gestation a viable male with Apgars of 8 and 9 at one and five minutes respectively. Expected weight of 6 pounds and 10 ounces. Cord blood gas was 7.31 and time of 11:32. 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 OPERATIVE PROCEDURE: Repeat low transverse delivery. OPERATIVE DESCRIPTION: With the patient in the supine position under satisfactory spinal analgesia, she was prepped and draped in the usual fashion for abdominal surgery. Givens catheter was placed in the urinary bladder. A repeat Pfannenstiel incision was made through the skin with a scalpel by removing the patient's previous Pfannenstiel incisional scar. The abdomen was entered in the usual manner. Bladder retractor placed in position, clean scalpel used to make a 4 cm hysterotomy incision transversely across the lower uterine segment that was extended by blunt dissection as well. Copious clear fluid was released on hysterotomy. A vigorous viable male infant was delivered via the uterine incision. The infant had stats as noted above. The infant was bulb suctioned on delivery of the head. The umbilical cord was doubly clamped after the was completely delivered. It was cut and the passed to the pediatric nurse in attendance for delivery. Cord bloods were obtained. The placenta delivered spontaneously Winston. It was normal with a 3-vessel cord. The uterus was exteriorized, the interior wiped clean with a wet laparotomy sponge. Uterine incision closed with a running locked suture of 2-0 Vicryl. Hemostasis was complete. The uterus was returned to the abdominal cavity. All blood clot and debris removed from the abdominal cavity. With sponge, needle counts correct, hemostasis assured. The anterior parietal peritoneum was closed with running suture of 2-0 Vicryl. The rectus muscles were closed with 2-0 Vicryl suture as well. The rectus fascia was closed with 2-0 Vicryl, subcutaneous tissue with 2-0 Vicryl and the skin was stapled. Sponge and needle counts were correct on completion of delivery and repair. Estimated blood loss was around 500 mL. The patient tolerated the procedure well. Job ID: [id number] DocumentID: [id number] Dictated Date: 04/24/2018 16:59:13 Manufacturing Process Technician Date: 04/25/2018 03:41:19 Dictated By: ZULLY GARAY MD
[2018-04-25] MEDS ORDERED: IBUPROFEN 800 MG (MOTRIN) TAB PO ONE (03:56)
[2018-04-25] MEDS: IBUPROFEN 800 MG (MOTRIN) TAB PO SCH ×2 (04:10→09:55)
[2018-04-25] MEDS: oxyCODONE/APAP 10/325MG (PERCOCET 10) TABLET PO PRN ×2 (04:49→09:55)
[2018-04-25 05:51] VITALS: BP 106/54
--- NOTE | 2018-04-25 08:04 | Progress Note-Standard ---
Standard Progress Note Progress Notes/Assess & Plan Date Seen by a Provider: Apr 25, 2018 Time Seen by a Provider: 08:03 Progress/Assessment & Plan This patient is without complaint. She is ambulating, voiding, tolerating oral intake well, has good pain control. Vital Signs 04/25/18 05:51 Temp 97.3 Pulse 70 Resp 16 B/P (MAP) 106/54 (71) Pulse Ox 97 O2 Delivery Room Air Vital signs are stable. Patient is afebrile. The abdomen is benign. The surgical incision is clean dry and intact. The fundus is firm below the umbilicus nontender. Extremities show no clubbing or cyanosis. There is no Homans sign. There is minimal pretibial pitting edema. Assessment and plan postoperative day number 1 status post repeat doing well. Plan is for routine convalescence care. Final Diagnosis 38 week repeat delivery ZULLY GARAY MD Apr 25, 2018 08:04
[2018-04-25 09:55] VITALS: BP 104/71
[2018-04-25] MEDS: DOCUSATE SODIUM 100 MG (COLACE) CAP PO SCH (09:55)
--- NOTE | 2018-04-25 10:06 | Anesthesia-Regional Post-Op ---
Regional Patient Condition Mental Status: Alert, Oriented x3 Circulation: Same as Pre-Op Headache: Absent Sensation: Full Recovery Motor Block: Absent Post Op Complications Complications None Follow Up Care/Instructions Patient Instructions None needed. Anesthesia/Patient Condition Patient is doing well, no complaints, stable vital signs, no apparent adverse anesthesia problems. No complications reported per nursing. DEBORAH CELESTIN CRNA Apr 25, 2018 10:06
== END 2018-04-25 15:22 | disposition home or self-care (01) | DRG 788 ==
LOC: LDRP 04-24 08:57 → WS 04-24 11:30
PROVIDERS: ADMIT Obstetrics & Gynecology; ATTEND Obstetrics & Gynecology
PROC: 10D00Z1 Extraction of Products of Conception, Low, Open Approach (ICD-10-PCS; principal; 2018-04-24 10:57)
DX: O34.211 Maternal care for low transverse scar from previous cesarean delivery (principal); Z3A.38 38 weeks gestation of pregnancy; Z37.0 Single live birth; Z87.19 Personal history of other diseases of the digestive system
CPT/HCPCS: 36415; 85025; 86850; 86900; 86901; 94664

== ENCOUNTER 2018-12-09 07:41 | Emergency (ER) | payer OTHER ==
[~2018-12-09] VITALS: Ht 154.9 cm; Wt 78.9 kg
[~2018-12-09 07:41] MED LIST changes: +DOCU100C37 PO; +IBUP-1780 PO; +OXYC1TAB12 PO
[2018-12-09] MEDS ORDERED: FLUO20CA25 (07:52)
[2018-12-09] MEDS ORDERED: ALPR0.254 (07:52)
[2018-12-09 08:07] LABS: BASOPHILS % (AUTO) 0 % (0-10); EOSINOPHILS % (AUTO) 0 % (0-10); HEMATOCRIT 43 % (35-52); HEMOGLOBIN 14.5 G/DL (11.5-16.0); LYMPHOCYTES # (AUTO) 0.8 X 10^3 (1.0-4.0); LYMPHOCYTES % (AUTO) 4 % (12-44); MEAN CORPUSCULAR HEMOGLOBIN 31 PG (25-34); MEAN CORPUSCULAR HGB CONC 34 G/DL (32-36); MEAN CORPUSCULAR VOLUME 90 FL (80-99); MEAN PLATELET VOLUME 9.3 FL (7.4-10.4); MONOCYTES # (AUTO) 0.8 X 10^3 (0.0-1.0); MONOCYTES % (AUTO) 4 % (0-12); NEUTROPHILS # (AUTO) 16.2 X 10^3 (1.8-7.8); NEUTROPHILS % (AUTO) 91 % (42-75); PLATELET COUNT 428 10^3/uL (130-400); RED CELL DISTRIBUTION WIDTH 13.7 % (10.0-14.5); WHITE BLOOD COUNT 17.8 10^3/uL (4.3-11.0)
--- NOTE | 2018-12-09 08:08 | ED Fever ---
History of Present Illness General Chief Complaint: Head/Cervical Problems Stated Complaint: FAINTING;HEADACHE Nursing Triage Note: AMB TO ED WITH MALE. PATIENT REPORTS THAT SHE DID NOT FEEL WELL LAST NIGHT C/O CHILLS,HEADACHE PASSED OUT LAST NIGHT. TODAY NOT FEELING ANY BETTER. Sepsis Screen: No Definite Risk Source: patient, family Exam Limitations: no limitations History of Present Illness Date Seen by Provider: Dec 09, 2018 Time Seen by Provider: 08:03 Initial Comments This 33-year-old white female presents with a history of not feeling well last night with associated nausea and he can be 2. Patient was noted to have an associated fever this morning. The patient has had an associated headache but denies photophobia or stiff neck. She's had no productive cough, sore throat or ear pain, diarrhea or dysuria, flank pain, or rash. No one at home has been ill. Patient's a 3 spontaneous AB 1 female. Allergies and Home Medications Allergies Coded Allergies: No Known Drug Allergies (Unverified , 01/25/11) Patient Home Medication List Home Medication List Reviewed: Yes Review of Systems Review of Systems Constitutional: No chills EENTM: No ear pain, No epistaxis, No throat pain Respiratory: No cough, No short of breath Cardiovascular: No chest pain, No palpitations; syncope Gastrointestinal: No abdominal pain, No diarrhea; nausea, vomiting Genitourinary: No dysuria, No frequency Musculoskeletal: No back pain, No neck pain Skin: No change in color Psychiatric/Neurological: Anxiety Hematologic/Lymphatic: No Symptoms Reported Immunological/Allergic: no symptoms reported Past Kddjrae-Ycgebl-Tlwxba Hx Past Med/Social Hx: Reviewed Nursing Past Med/Soc Hx Patient Social History Alcohol Use: Occasionally Uses Alcohol Beverage of Choice: Wine Recreational Drug Use: No Smoking Status: Never a Smoker Recent Foreign Travel: No Contact w/Someone Who Travel: No Recent Infectious Disease Expo: No Recent Hopitalizations: No Physical Abuse: No Sexual Abuse: No Mistreated: No Fear: No Immunizations Up To Date Tetanus Booster (TDap): Unknown PED Vaccines UTD: No Date of Influenza Vaccine: Feb 02, 2018 Seasonal Allergies Seasonal Allergies: Yes Past Medical History Surgeries: Yes (BMT, x2, D&C) Respiratory: No Cardiac: No Neurological: No Reproductive Disorders: No Genitourinary: No Gastrointestinal: No Musculoskeletal: No Endocrine: No HEENT: No Cancer: No Psychosocial: No Integumentary: No Blood Disorders: No Family Medical History Not obtainable due to adoption Physical Exam Vital Signs - First Documented 12/09/18 07:44 Temp 100.9 Pulse 88 Resp 18 B/P (MAP) 112/39 (63) Pulse Ox 98 O2 Delivery Room Air Capillary Refill : Less Than 3 Seconds Height: 5'1.00" Weight: 174lbs. 0.0oz. 78.075465xh; 36.8 BMI Method:Stated General Appearance: WD/WN, no apparent distress Eyes: Bilateral Eye Normal Inspection, Bilateral Eye PERRL HEENT: normal ENT inspection Neck: full range of motion, supple, normal inspection Respiratory: lungs clear, normal breath sounds, no respiratory distress Cardiovascular: regular rate, rhythm Gastrointestinal: normal bowel sounds, non tender, soft Neurologic/Psychiatric: no motor/sensory deficits, alert, normal mood/affect, oriented x 3 Skin: normal color, warm/dry Progress/Results/Core Measures Suspected Sepsis Recent Fever Within 48 Hours: No Infection Criteria Present: Suspected New Infection New/Unexplained Altered Menta: No Sepsis Screen: No Definite Risk SIRS Temperature:100.9 Pulse: 88 Respiratory Rate: 18 Laboratory Tests 12/09/18 07:48: White Blood Count 17.8H Blood Pressure 112 /39 Mean: 63 Laboratory Tests 12/09/18 07:48: Creatinine 1.07, Platelet Count 428H, Total Bilirubin 0.6 Results/Orders Lab Results Laboratory Tests Test 12/09/18 07:48 12/09/18 08:48 Range/Units White Blood Count 17.8 H 4.3-11.0 10^3/uL Red Blood Count 4.75 4.35-5.85 10^6/uL Hemoglobin 14.5 11.5-16.0 G/DL Hematocrit 43 35-52 % Mean Corpuscular Volume 90 80-99 FL Mean Corpuscular Hemoglobin 31 25-34 PG Mean Corpuscular Hemoglobin Concent 34 32-36 G/DL Red Cell Distribution Width 13.7 10.0-14.5 % Platelet Count 428 H 130-400 10^3/uL Mean Platelet Volume 9.3 7.4-10.4 FL Neutrophils (%) (Auto) 91 H 42-75 % Lymphocytes (%) (Auto) 4 L 12-44 % Monocytes (%) (Auto) 4 0-12 % Eosinophils (%) (Auto) 0 0-10 % Basophils (%) (Auto) 0 0-10 % Neutrophils # (Auto) 16.2 H 1.8-7.8 X 10^3 Lymphocytes # (Auto) 0.8 L 1.0-4.0 X 10^3 Monocytes # (Auto) 0.8 0.0-1.0 X 10^3 Eosinophils # (Auto) 0.0 0.0-0.3 10^3/uL Basophils # (Auto) 0.0 0.0-0.1 10^3/uL Neutrophils % (Manual) 84 % Lymphocytes % (Manual) 3 % Monocytes % (Manual) 3 % Eosinophils % (Manual) 0 % Basophils % (Manual) 0 % Band Neutrophils 10 % Blood Morphology Comment NORMAL Sodium Level 135 135-145 MMOL/L Potassium Level 4.5 3.6-5.0 MMOL/L Chloride Level 102 98-107 MMOL/L Carbon Dioxide Level 20 L 21-32 MMOL/L Anion Gap 13 5-14 MMOL/L Blood Urea Nitrogen 13 7-18 MG/DL Creatinine 1.07 0.60-1.30 MG/DL Estimat Glomerular Filtration Rate 59 BUN/Creatinine Ratio 12 Glucose Level 139 H 70-105 MG/DL Calcium Level 9.6 8.5-10.1 MG/DL Corrected Calcium 9.5 8.5-10.1 MG/DL Total Bilirubin 0.6 0.1-1.0 MG/DL Aspartate Amino Transf (AST/SGOT) 18 5-34 U/L Alanine Aminotransferase (ALT/SGPT) 17 0-55 U/L Alkaline Phosphatase 180 H 40-136 U/L Total Protein 7.7 6.4-8.2 GM/DL Albumin 4.1 3.2-4.5 GM/DL Urine Color YELLOW Urine Clarity CLEAR Urine pH 8 5-9 Urine Specific [place] 1.010 L 1.016-1.022 Urine Protein 2+ H NEGATIVE Urine Glucose (UA) NEGATIVE NEGATIVE Urine Ketones 2+ H NEGATIVE Urine Nitrite NEGATIVE NEGATIVE Urine Bilirubin 1+ H NEGATIVE Urine Urobilinogen 1 NORMAL MG/DL Urine Leukocyte Esterase 1+ H NEGATIVE Urine RBC (Auto) 4+ H NEGATIVE Urine RBC 0-2 /HPF Urine WBC 5-10 H /HPF Urine Squamous Epithelial Cells 10-25 H /HPF Urine Crystals NONE /LPF Urine Bacteria MODERATE H /HPF Urine Casts NONE /LPF Urine Mucus MODERATE H /LPF Urine Culture Indicated YES My Orders Orders - JH MARTI MD Cbc With Automated Diff (12/09/18 08:01) Comprehensive Metabolic Panel (12/09/18 08:01) Ns Iv 1000 Ml (Sodium Chloride 0.9%) (12/09/18 08:15) Ondansetron Injection (Zofran Injectio (12/09/18 08:15) Fentanyl Injection (Sublimaze Injection (12/09/18 08:15) Manual Differential (12/09/18 07:48) Ua Culture If Indicated (12/09/18 08:38) Chest 1 View, Ap/Pa Only (12/09/18 08:42) Acetaminophen Tablet/Caplet (Tylenol T (12/09/18 09:00) Ns Iv 1000 Ml (Sodium Chloride 0.9%) (12/09/18 09:00) Urine Culture (12/09/18 08:48) Ceftriaxone For Iv Use (Rocephin For I (12/09/18 10:00) Medications Given in ED Current Medications Medications Dose Ordered Sig/Erick Route Start Time Stop Time Status Last Admin Dose Admin Acetaminophen 650 mg ONCE ONCE PO 12/09/18 09:00 12/09/18 09:01 DC 12/09/18 09:18 650 MG Ceftriaxone Sodium 2000 mg/ Sterile Water 20 ml @ 240 mls/hr ONCE ONCE IV 12/09/18 10:00 12/09/18 10:04 DC 12/09/18 09:59 240 MLS/HR Fentanyl Citrate 50 mcg ONCE ONCE IVP 12/09/18 08:15 12/09/18 08:16 DC 12/09/18 08:14 50 MCG Ondansetron HCl 4 mg ONCE ONCE IVP 12/09/18 08:15 12/09/18 08:16 DC 12/09/18 08:13 4 MG Vital Signs/I&O 12/09/18 07:44 Temp 100.9 Pulse 88 Resp 18 B/P (MAP) 112/39 (63) Pulse Ox 98 O2 Delivery Room Air Capillary Refill : Less Than 3 Seconds Blood Pressure Mean: 63 Progress Note : Time: 11:46 Progress Note Patient's laboratory evaluation demonstrated a leukocytosis and an apparent urinary tract infection. Patient received 2 g Rocephin IV. The patient was symptomatically improved following IV fluids. I discussed the findings with the patient and her . I confess that I was not certain of the patient's source of infection. I recommended patient initiate quinolones today and arrange for close follow-up with her primary care physician tomorrow. Most importantly she was asked to return to the emergency Department if she had any further problems or questions. Departure Impression Primary Impression: Leukocytosis Qualified Codes: D72.829 - Elevated white blood cell count, unspecified Additional Impression: UTI (urinary tract infection) Qualified Codes: N30.00 - Acute cystitis without hematuria Disposition: HOME, SELF-CARE Condition: Improved Departure-Patient Inst. Decision time for Depature: 11:57 Referrals: DASH MARION MD (PCP/Family) Primary Care Physician Patient Instructions: Acute Cystitis (DC) Add. Discharge Instructions: Follow-up with Dr. Marion tomorrow. Cipro as prescribed. Come back if any problems. All discharge instructions reviewed with patient and/or family. Voiced understanding. Scripts Ciprofloxacin HCl (Ciprofloxacin HCl) 500 Mg Tablet 500 MG PO BID, #14 TAB Prov: JH MARTI MD 12/09/18 JH MARTI MD Dec 09, 2018 08:08
[2018-12-09] MEDS ORDERED: fentaNYL INJECTION 100 MCG/2 ML AMP IVP ONE (08:15)
[2018-12-09] MEDS ORDERED: NS IV 1000 ML 1,000 ML IV SCH ×2 (08:15→09:00)
[2018-12-09] MEDS ORDERED: ONDANSETRON 4 MG/2 ML (SDV) Z0FRAN IVP ONE (08:15)
--- NOTE | 2018-12-09 08:17 | NUR ---
PATIENT REPORTS THAT HER HEADACHE FEELS LIKE HER HEADACHE SHE HAS IN THE PAST. CONCERN BECAUSE SHE FELT HER NECK WAS STIFF. DR MARTI NOTIFIED.
[2018-12-09 08:21] LABS: BILIRUBIN,TOTAL 0.6 MG/DL (0.1-1.0); CALCIUM 9.6 MG/DL (8.5-10.1); CREATININE SERUM 1.07 MG/DL (0.60-1.30); POTASSIUM 4.5 MMOL/L (3.6-5.0)
[2018-12-09 08:22] LABS: ALBUMIN 4.1 GM/DL (3.2-4.5); TOTAL PROTEIN 7.7 GM/DL (6.4-8.2)
[2018-12-09 08:40] LABS: BAND NEUTROPHILS 10 %; BASOPHILS % (MANUAL) 0 %; EOSINOPHILS % (MANUAL) 0 %; LYMPHOCYTES % (MANUAL) 3 %; MONOCYTES % (MANUAL) 3 %; NEUTROPHILS % (MANUAL) 84 %; RBC MORPH NORMAL
[2018-12-09 08:55] LABS: CLARITY,URINE CLEAR; COLOR,URINE YELLOW; GLUCOSE, URINE (UA) NEGATIVE (NEGATIVE); KETONES,URINE 2+ (NEGATIVE); LEUKOCYTE ESTERASE ,URINE 1+ (NEGATIVE); NITRITE,URINE NEGATIVE (NEGATIVE); PH,URINE 8 (5-9); PROTEIN,URINE 2+ (NEGATIVE); UROBILINOGEN,URINE 1 MG/DL (NORMAL)
[2018-12-09] MEDS ORDERED: ACETAMINOPHEN 325 MG TABLET PO ONE (09:00)
[2018-12-09 09:10] LABS: BACTERIA,URINE MODERATE /HPF; BILIRUBIN,URINE 1+ (NEGATIVE); RBC,URINE 0-2 /HPF
--- NOTE | 2018-12-09 09:41 | Diagnostic Imaging Report ---
Patient History: Weakness, syncope. Technique: Single frontal view of the chest Comparison: None FINDINGS: The lung volumes are normal. No focal consolidation is seen. No large pleural effusion or pneumothorax is seen. The cardiomediastinal silhouette is normal in size and contour. No acute osseous abnormality is seen. IMPRESSION: No acute pulmonary abnormality seen. Dictated by: Dictated on workstation # [id number]
[2018-12-09] MEDS ORDERED: cefTRIAXone FOR IV USE 2,000 MG in WATER (STERILE) FOR INJECTION 20 ML IV ONE (10:00)
--- NOTE | 2018-12-09 10:23 | NUR ---
TO ROOM ROCEPHIN CON'T TO INFUSE PATIENT REPORTS FEELING BETTER
--- NOTE | 2018-12-09 11:37 | NUR ---
DR TO ROOM TO DISCUSS TEST RESULTS.
[2018-12-09] MEDS ORDERED: CIPR500T4 PO (12:01)
[2018-12-09 12:08] VITALS: BP 103/64
== END 2018-12-09 12:08 | disposition home or self-care (01) ==
LOC: EDUNIT# 07:41 → ER 07:42
DX: D72.829 Elevated white blood cell count, unspecified (principal); N39.0 Urinary tract infection, site not specified; F41.9 Anxiety disorder, unspecified
CPT/HCPCS: 36415; 71045; 80053; 81000; 85007; 85027; 87088

== ENCOUNTER → 2021-02-15 | Outpatient (CLI) | payer OTHER ==
[~2021-02-15] MED LIST changes: +ALPR.25T; +CIPR500T5 PO; +FLUO20CA46; -OXYC-465 PO; +OXYC-556 PO
== END ==
LOC: LAB 06:35
PROVIDERS: ATTEND Obstetrics & Gynecology Reproductive Endocrinology
DX: Z31.7 Encounter for procreative management and counseling for gestational carrier (principal)
CPT/HCPCS: 36415; 82670

== ENCOUNTER → 2021-03-09 | Outpatient (CLI) | payer OTHER ==
--- NOTE | 2021-03-09 15:27 | Diagnostic Imaging Report ---
PROCEDURE: Pelvic comp/transvaginal sonogram. TECHNIQUE: Complete transabdominal and transvaginal pelvic ultrasound was performed. In addition, limited pelvic Doppler was performed. INDICATION: Screening for surrogacy. Uterus is retroverted measuring 9.7 x 6.1 x 4.0 cm. There appears to be fluid in the endocervical canal. No myometrial masses detected. The endometrial thickness is proxy 7 mm. A right ovary measures 2.1 x 1.4 x 2.0 cm, the left ovary measures 2.0 x 1.0 x 2.3 cm. Ovaries contain several small follicles. There is blood flow to both ovaries. No adnexal mass or free fluid is detected. IMPRESSION: There is some fluid in the endocervical canal. The study is otherwise unremarkable. Dictated by: Dictated on workstation # [id number]
== END ==
LOC: RAD 13:30
PROVIDERS: ATTEND Obstetrics & Gynecology Reproductive Endocrinology
DX: Z31.7 Encounter for procreative management and counseling for gestational carrier (principal)
CPT/HCPCS: 76830; 76856

== ENCOUNTER → 2021-04-02 | Outpatient (CLI) | payer OTHER ==
[~2021-04-02] MED LIST changes: -FLUO20CA46; +FLUO20CA48
== END ==
LOC: LAB 08:08
PROVIDERS: ATTEND Obstetrics & Gynecology Reproductive Endocrinology
DX: Z33.3 Pregnant state, gestational carrier (principal)
CPT/HCPCS: 36415; 84702

== ENCOUNTER → 2021-04-30 | Outpatient (CLI) | payer OTHER ==
--- NOTE | 2021-04-30 14:17 | Diagnostic Imaging Report ---
INDICATION: dating. There is a single live IUP measuring 9 weeks 2 days gestational age. heart rate was recorded at 174 bpm. No sharlene-gestational sac hemorrhage is identified. Adnexa are unremarkable. IMPRESSION: Single live IUP 9 weeks 2 days gestational age. Estimated date of confinement sonographically is 12/01/2021. Dictated by: Dictated on workstation # [id number]
== END ==
LOC: RAD 12:00
PROVIDERS: ATTEND Obstetrics & Gynecology
DX: Z36.9 Encounter for antenatal screening, unspecified (principal); Z3A.09 9 weeks gestation of pregnancy
CPT/HCPCS: 76801; 76817

== ENCOUNTER 2021-05-31 13:20 | Emergency (ER) | payer OTHER ==
--- NOTE | 2021-05-31 14:14 | ED General ---
General Stated Complaint: PELVIC PAIN/PRESSURE,DIFFICULTY URINATING-14WKS Source of Information: Patient Exam Limitations: No Limitations History of Present Illness Date Seen by Provider: May 31, 2021 Time Seen by Provider: 14:11 Initial Comments To ER by private vehicle with reports of lower midline pelvic pain and pressure with the constant urge to urinate. When she does urinate she gets an urge to push. She is 14 weeks gestation. She is G5, P4. She denies any vaginal bleeding or discharge. No fevers but she has had chills. She was already seen today by obstetrics, given Pyridium and Macrobid. Timing/Duration: 2-3 Days Severity: Moderate Associated Systoms: Denies Symptoms Allergies and Home Medications Allergies Coded Allergies: No Known Drug Allergies (Unverified , 01/25/11) Patient Home Medication List Home Medication List Reviewed: Yes ALPRAZolam (Xanax Tablet) 0.25 Mg Tablet, (Reported) Entered as Reported by: JD MEJIA on 12/09/18 0752 Ciprofloxacin HCl (Ciprofloxacin HCl) 500 Mg Tablet, 500 MG PO BID Prescribed by: JH MARTI MD on 12/09/18 1201 Fluoxetine HCl (Fluoxetine HCl) 20 Mg Capsule, (Reported) Entered as Reported by: JD MEJIA on 12/09/18 0752 Review of Systems Review of Systems Constitutional: see HPI; No chills, No fever EENTM: see HPI Respiratory: no symptoms reported Cardiovascular: no symptoms reported Genitourinary: see HPI Musculoskeletal: no symptoms reported Skin: no symptoms reported Psychiatric/Neurological: No Symptoms Reported Hematologic/Lymphatic: No Symptoms Reported Immunological/Allergic: no symptoms reported Past Fwisaag-Dyaifd-Undflb Hx Immunizations Up To Date Tetanus Booster (TDap): Unknown PED Vaccines UTD: No Seasonal Allergies Seasonal Allergies: Yes Past Medical History Surgeries: Yes (BMT, x2, D&C) Respiratory: No Cardiac: No Neurological: No Reproductive Disorders: No Genitourinary: No Gastrointestinal: No Musculoskeletal: No Endocrine: No HEENT: No Cancer: No Psychosocial: No Integumentary: No Blood Disorders: No Family Medical History Not obtainable due to adoption Physical Exam Vital Signs Vital Signs - First Documented 05/31/21 14:05 Temp 36.0 Pulse 94 Resp 17 B/P (MAP) 133/83 (100) Pulse Ox 98 O2 Delivery Room Air Capillary Refill : Height, Weight, BMI Height: 5'1.00" Weight: 174lbs. 0.0oz. 78.823068pb; 36.8 BMI Method:Stated General Appearance: No Apparent Distress, WD/WN Eyes: Bilateral Eye Normal Inspection, Bilateral Eye PERRL, Bilateral Eye EOMI Neck: Full Range of Motion, Normal Inspection Respiratory: No Accessory Muscle Use, No Respiratory Distress Cardiovascular: Regular Rate, Rhythm, Normal Peripheral Pulses Gastrointestinal: Normal Bowel Sounds, Non Tender, Soft Extremity: Normal Capillary Refill, Normal Inspection Neurologic/Psychiatric: Alert, Oriented x3 Skin: Normal Color, Warm/Dry Progress/Results/Core Measures Suspected Sepsis SIRS Temperature: Pulse: Respiratory Rate: Blood Pressure / Mean: Results/Orders Lab Results Laboratory Tests Test 05/31/21 14:15 Range/Units Urine Color YELLOW Urine Clarity CLEAR Urine pH 6.0 5-9 Urine Specific Crump 1.010 L 1.016-1.022 Urine Protein NEGATIVE NEGATIVE Urine Glucose (UA) NEGATIVE NEGATIVE Urine Ketones NEGATIVE NEGATIVE Urine Nitrite NEGATIVE NEGATIVE Urine Bilirubin NEGATIVE NEGATIVE Urine Urobilinogen 0.2 < = 1.0 MG/DL Urine Leukocyte Esterase NEGATIVE NEGATIVE Urine RBC (Auto) NEGATIVE NEGATIVE Urine RBC NONE /HPF Urine WBC NONE /HPF Urine Squamous Epithelial Cells 2-5 /HPF Urine Crystals NONE /LPF Urine Bacteria TRACE /HPF Urine Casts NONE /LPF Urine Mucus NEGATIVE /LPF Urine Culture Indicated NO My Orders Orders - RITU SILVA APRN Ua Culture If Indicated (05/31/21 14:04) Us Ob<14 Wks Sngle W/Transvag (05/31/21 14:04) Vital Signs/I&O 05/31/21 14:05 Temp 36.0 Pulse 94 Resp 17 B/P (MAP) 133/83 (100) Pulse Ox 98 O2 Delivery Room Air Capillary Refill : Departure Communication (Admissions) Family Conversation NAME: ASUNCION ADORNO MED REC#: [id number] PT STATUS: REG ER : 1985 PHYSICIAN: RITU SILVA APRN ADMIT DATE: 05/31/21/ER Draft Date of Exam:05/31/21 US OB<14 WKS SNGLE W/TRANSVAG INDICATION: Pelvic pressure. FINDINGS: There is a single live IUP measuring approximately 14 weeks 0 days gestational age. heart rate was recorded at 155 BPM. No sharlene-gestational sac hemorrhage. Transvaginal study could not be performed due to patient's inability to empty her bladder. Ovaries were not visualized. IMPRESSION: Single live IUP of 14 weeks 0 days gestational age with estimated date of confinement of 11/29/2021. No complicating features are detected. Dictated on workstation # [id number] Dict: 05/31/21 1513 Trans: 05/31/21 1517 [id number] Interpreted by: SHIRA PEDRAZA MD Electronically signed by: 1454-transvaginal ultrasound by cctv technician reveals normal fetus and uterus but a very full bladder. Patient was asked to empty her bladder but was unable to do so. Subsequently we did a straight catheterization and empty to 1000 mL of urine off the bladder. Immediate resolution of symptoms. Her urine does not appear infected so I will tell her to stop the Macrobid. I will have her return for any worsening symptoms. Impression Primary Impression: Urinary retention Disposition: 01 HOME, SELF-CARE Condition: Stable Departure-Patient Inst. Decision time for Depature: 14:56 Referrals: DASH MARION MD (PCP/Family) Primary Care Physician Patient Instructions: Urinary Retention (DC) Add. Discharge Instructions: 1. Return to ER for any concerns. Follow-up with Dr. Ennis. Your urine does not appear infected your ultrasound appears normal but you did have a lot of urinary retention with over 1000 cc in your bladder. You do not need to take the Pyridium or the nitrofurantoin antibiotic prescribed earlier. Return to ER for any recurrent inability to urinate. RITU SILVA HOSPITAL SECURITY OFFICER May 31, 2021 14:14
[2021-05-31 14:22] LABS: BILIRUBIN,URINE NEGATIVE (NEGATIVE); CLARITY,URINE CLEAR; COLOR,URINE YELLOW; GLUCOSE, URINE (UA) NEGATIVE (NEGATIVE); KETONES,URINE NEGATIVE (NEGATIVE); LEUKOCYTE ESTERASE ,URINE NEGATIVE (NEGATIVE); NITRITE,URINE NEGATIVE (NEGATIVE); PROTEIN,URINE NEGATIVE (NEGATIVE)
[2021-05-31 14:47] LABS: BACTERIA,URINE TRACE /HPF
--- NOTE | 2021-05-31 15:17 | Diagnostic Imaging Report ---
INDICATION: Pelvic pressure. FINDINGS: There is a single live IUP measuring approximately 14 weeks 0 days gestational age. heart rate was recorded at 155 BPM. No sharlene-gestational sac hemorrhage. Transvaginal study could not be performed due to patient's inability to empty her bladder. Ovaries were not visualized. IMPRESSION: Single live IUP of 14 weeks 0 days gestational age with estimated date of confinement of 11/29/2021. No complicating features are detected. Dictated by: Dictated on workstation # [id number]
[2021-05-31 15:25] VITALS: BP 130/81
== END 2021-05-31 15:27 | disposition home or self-care (01) ==
LOC: EDUNIT# 13:20 → ER 13:22
DX: O26.832 Pregnancy related renal disease, second trimester (principal); R33.9 Retention of urine, unspecified; Z3A.14 14 weeks gestation of pregnancy
CPT/HCPCS: 51701; 76801; 76817; 81000

== ENCOUNTER 2021-10-19 09:21 | Outpatient (CLI) | payer OTHER ==
[~2021-10-19] VITALS: Ht 154.9 cm; Wt 81.3 kg
[2021-10-19 09:45] VITALS: BP 111/75
[2021-10-19 09:51] VITALS: BP 111/75
[2021-10-19] MEDS ORDERED: D5 LR IV SOLUTION 1,000 ML IV ONE (10:09)
[2021-10-19 10:10] LABS: BILIRUBIN,URINE NEGATIVE (NEGATIVE); CLARITY,URINE CLEAR; COLOR,URINE YELLOW; GLUCOSE, URINE (UA) NEGATIVE (NEGATIVE); KETONES,URINE NEGATIVE (NEGATIVE); LEUKOCYTE ESTERASE ,URINE NEGATIVE (NEGATIVE); NITRITE,URINE NEGATIVE (NEGATIVE); PROTEIN,URINE NEGATIVE (NEGATIVE)
[2021-10-19 10:11] LABS: BACTERIA,URINE MODERATE /HPF; WBC,URINE RARE /HPF
[2021-10-19] MEDS ORDERED: D5 LR IV SOLUTION 1,000 ML IV SCH (10:15)
--- NOTE | 2021-10-22 08:38 | Physician Query-Final Dx ---
FIORELLA,10/22/21 0837: Clinic Account Progress/Dx Physician Query: Please give diagnosis Please include # weeks gestation Date of Service Oct 19, 2021 at 09:21 ZULLY GARAY MD 10/22/21 1751: Clinic Account Progress/Dx DIAGNOSIS: Diagnosis 33 weeks with dehydration and vaso-vagal syncope FIORELLA,MayOct 22, 2021 08:37 ZULLY GARAY MD Oct 22, 2021 17:51
== END 2021-10-19 11:35 | disposition home or self-care (01) ==
LOC: WSo 09:21 → LDRP 09:23 → WSo 11:35
PROVIDERS: ATTEND Obstetrics & Gynecology
DX: O26.893 Other specified pregnancy related conditions, third trimester (principal); E86.0 Dehydration; R55 Syncope and collapse; Z3A.33 33 weeks gestation of pregnancy
CPT/HCPCS: 81000; 87088; 96360; G0463; 99213

== ENCOUNTER 2021-11-06 05:28 | Outpatient (CLI) | payer OTHER ==
[~2021-11-06] VITALS: Ht 157.5 cm; Wt 91.0 kg
[2021-11-06] MEDS ORDERED: PREN-164 PO (15:07)
[2021-11-06] MEDS ORDERED: URSO250T12 PO (15:07)
[2021-11-06] MEDS ORDERED: OMEP20CA18 PO (15:07)
== END 2021-11-06 15:21 | disposition home or self-care (01) ==
LOC: PREOP 05:28
PROVIDERS: ATTEND Obstetrics & Gynecology
DX: Z01.818 Encounter for other preprocedural examination (principal)

== ENCOUNTER 2021-11-12 10:02 | Inpatient (IN) | payer OTHER ==
[2021-11-12] VITALS (9 sets, daily range): BP systolic 100–143; BP diastolic 57–97
[~2021-11-12] VITALS: Ht 154.9 cm; Wt 81.4 kg
[~2021-11-12 10:02] MED LIST changes: +OMEP20CA18 PO; +PREN-164 PO; +URSO250T12 PO
[2021-11-12] MEDS: D5 LR IV SOLUTION 1,000 ML IV SCH ×2 (10:45→18:45)
[2021-11-12] MEDS ORDERED: METOCLOPRAMIDE INJ 10 MG/2 ML (REGLAN) IV ONE (11:00)
[2021-11-12] MEDS ORDERED: CITRIC ACID/SOB CIT (BICITRA) 30 ML UDC PO ONE (11:00)
[2021-11-12] MEDS ORDERED: LACTATED RINGERS 1,000 ML IV PRN ×2 (11:00)
[2021-11-12] MEDS ORDERED: ceFAZolin INJECTION 2,000 MG in NS (IVPB) 50 ML IV ONE (11:00)
[2021-11-12] MEDS ORDERED: metroNIDAZOLE 500MG/100ML IVPB 100 ML IV ONE (11:00)
[2021-11-12] MEDS ORDERED: FAMOTIDINE 20MG/2ML IV (PEPCID) IV ONE (11:00)
[2021-11-12 11:16] LABS: BASOPHILS % (AUTO) 0 % (0-10); EOSINOPHILS # (AUTO) 0.1 10^3/uL (0.0-0.3); EOSINOPHILS % (AUTO) 1 % (0-10); HEMATOCRIT 35 % (35-52); HEMOGLOBIN 11.9 g/dL (11.5-16.0); LYMPHOCYTES # (AUTO) 1.9 10^3/uL (1.0-4.0); LYMPHOCYTES % (AUTO) 18 % (12-44); MEAN CORPUSCULAR HEMOGLOBIN 31 pg (25-34); MEAN CORPUSCULAR HGB CONC 34 g/dL (32-36); MEAN CORPUSCULAR VOLUME 91 fL (80-99); MEAN PLATELET VOLUME 9.8 fL (9.0-12.2); MONOCYTES # (AUTO) 0.6 10^3/uL (0.0-1.0); MONOCYTES % (AUTO) 5 % (0-12); NEUTROPHILS # (AUTO) 7.7 10^3/uL (1.8-7.8); NEUTROPHILS % (AUTO) 74 % (42-75); PLATELET COUNT 253 10^3/uL (130-400); WHITE BLOOD COUNT 10.4 10^3/uL (4.3-11.0)
[2021-11-12] MEDS: CATHETER FLUSH 10 ML SYR IV PRN ×3 (11:42→18:44)
[2021-11-12] MEDS ORDERED: fentaNYL INJ 100 MCG/2 ML AMP ONE ×2 (11:50→12:31)
[2021-11-12] MEDS ORDERED: KETAMINE 50 MG/5 ML SYRINGE ONE (11:58)
[2021-11-12] MEDS ORDERED: MIDAZOLAM 2 MG/2 ML (VERSED) VIAL ONE (12:26)
[2021-11-12] MEDS ORDERED: TETANUS,DIPTH,PERTUSS P/F (BOOSTRIX) 0.5 ML VIAL IM ONE (12:45)
[2021-11-12] MEDS ORDERED: fentaNYL INJ 100 MCG/2 ML AMP IVP PRN (12:45)
[2021-11-12] MEDS ORDERED: D5 LR IV SOLUTION 1,000 ML IV SCH (12:45)
[2021-11-12] MEDS ORDERED: ONDANSETRON 4 MG/2 ML (SDV) Z0FRAN IVP PRN (12:45)
[2021-11-12] MEDS: KETOROLAC 30 MG/ML VIAL IVP SCH ×2 (12:45→18:44)
[2021-11-12] MEDS ORDERED: OXYTOCIN PRE-MIX DRIP 500 ML IV ONE (13:03)
[2021-11-12] MEDS: OXYTOCIN PRE-MIX DRIP 500 ML IV SCH ×2 (13:03→15:11)
[2021-11-12] MEDS ORDERED: PHENYLEPHRINE INJ 10 MG/ML (FOR PYXIS KITS ONLY) ONE (13:18)
[2021-11-12] MEDS ORDERED: KETOROLAC 30 MG/ML VIAL ONE (13:20)
[2021-11-12] MEDS ORDERED: PHENYLEPHRINE 100 MCG/ML 10 ML (ANESTHESIA) SYR ONE (13:20)
[2021-11-12] MEDS ORDERED: proPOfol 200 MG/20 ML (DIPRIVAN) VIAL IV ONE (13:21)
[2021-11-12] MEDS ORDERED: BUPIVACAINE 0.5% 30 ML (SENSORCAINE) VIAL ONE (13:22)
[2021-11-12] MEDS ORDERED: ATROPINE INJ 0.4 MG/ML SDV ONE (13:23)
--- NOTE | 2021-11-12 14:23 | History & Physical ---
History and Physical Date Seen by Provider: Nov 12, 2021 Time Seen by Provider: 12:00 This patient is a 36-year-old multigravid patient who has had 2 previous C- section. She currently is caring and surrogate and is at 37 weeks and a complicated by cholestasis of . She has been stable in regard to reaching with ursodiol. She presents now for delivery at 37 weeks gestation. The biologic parents are on hand. Patient denies rupture membranes or bleeding. Her GBS culture was negative. Allergies are none Medications are vitamins and ursodiol Medical social and surgical histories are per the antepartum record HEENT exam is normal Neck is supple no lymphadenopathy no thyromegaly abdomen is gravid soft nontender nondistended Extremities show no clubbing cyanosis. There is no Homans' sign. Pelvic exam was deferred Assessment and plan 37-week complicated by cholestasis of . This is a surrogate and patient who has had at least 2 previous C-sections. Plan is to proceed with delivery now. The biologic parents for this early are on hand 37-week with previous and cholestasis of Allergies and Home Medications Allergies Coded Allergies: No Known Drug Allergies (Unverified , 01/25/11) Patient Home Medication List Home Medication List Reviewed: Yes Omeprazole (Omeprazole) 20 Mg Capsule., 20 MG PO, (Reported) Entered as Reported by: MAMIE GASPAR on 11/06/211506 No.137/Iron/Folic Acd ( Vitamin Tablet) 27 Mg-0.8 Mg Tablet, 1 EACH PO, (Reported) Entered as Reported by: MAMIE GASPAR on 11/06/211506 Ursodiol (Ursodiol) 250 Mg Tablet, 250 MG PO UD, (Reported) Entered as Reported by: MAMIE GASPAR on 11/06/211506 Discontinued Medications ALPRAZolam (Xanax Tablet) 0.25 Mg Tablet, (Reported) Discontinued Reason: No Longer Taking Entered as Reported by: JD MEJIA on 12/09/18751 Fluoxetine HCl (Fluoxetine HCl) 20 Mg Capsule, (Reported) Discontinued Reason: No Longer Taking Entered as Reported by: JD MEJIA on 12/09/18751 ZULLY GARAY MD Nov 12, 2021 14:23
--- NOTE | 2021-11-12 14:24 | Discharge Inst-Surgical ---
Discharge Inst-Surgical Depart Medication/Instructions New, Converted or Re-Newed RX: Transmitted to Pharmacy Consults/Follow Up Patient Instructions: As directed Orders & Referrals Follow Up Appt: RTC 1 week for incision check. Call to make follow up appt. for patient in 4 weeks. Wound Care: Remove daniel, apply benzoin and steri strips. Activity Per routine post instructions. Scription for Percocet Motrin and Colace have been sent to patient's pharmacy from my clinic Diet as tolerated Patient may shower or tub bathe as desired. Continue home meds Activity Activity as Tolerated: No Diet Discharge Diet: No Restrictions ZULLY GARAY MD Nov 12, 2021 14:24
[2021-11-12] MEDS: oxyCODONE/APAP 10/325MG (PERCOCET 10) TABLET PO PRN ×2 (14:25→18:50)
[2021-11-12] MEDS: DOCUSATE SODIUM 100 MG (COLACE) CAP PO SCH (20:39)
[2021-11-12] MEDS ORDERED: DOCUSATE SODIUM 100 MG (COLACE) CAP PO SCH (21:00)
--- NOTE | 2021-11-12 23:06 | OPERATIVE REPORT ---
DATE OF SERVICE: 11/12/2021 PREOPERATIVE DIAGNOSES: A 37 weeks gestation with cholestasis of and a surrogate with two previous sections. POSTOPERATIVE DIAGNOSES: A 37 weeks gestation with cholestasis of and a surrogate with two previous sections. OPERATIVE PROCEDURE: Repeat low transverse delivery of a viable male with Apgars of 8 and 9 at 1 and 5 minutes respectively, weight of 8 pounds and 5 ounces, time of 12:28 and a cord blood pH was 7.24. OPERATIVE DESCRIPTION: With the patient in supine position under satisfactory spinal analgesia, she was prepped and draped in the usual fashion for abdominal surgery. Givens catheter was placed in the urinary bladder. A repeat Pfannenstiel incision was made through skin with scalpel, the patient's abdomen entered in the usual manner. Bladder retractor placed in position; clean scalpel used to make a 4 cm hysterotomy incision transversely across the lower uterine segment. That incision was extended bluntly. Copious clear fluid was released on hysterotomy. Nur forceps were applied to facilitate the delivery of a vigorous viable male infant with Apgars and stats as noted above. The was bulb suctioned on delivery of the head and again on completion of delivery. Umbilical cord was doubly clamped and cut, and passed to the pediatric nurse in attendance for delivery. Cord bloods were obtained. The placenta delivered fairly promptly spontaneously Winston. It was normal with a 3-vessel cord. The uterus was exteriorized and interior wiped clean with a wet laparotomy sponge. Uterine incision closed with running locked suture of 2-0 Vicryl. Hemostasis was complete. The uterus was returned to abdominal cavity. All blood clot and debris was evacuated from the abdominal cavity. Sponge and needle counts correct and hemostasis assured at this point. The anterior parietal peritoneum was closed with running suture of 2-0 Vicryl. Rectus muscles were closed with 2-0 Vicryl. Rectus fascia was closed with 2-0 Vicryl, subcutaneous tissue was closed with 2-0 Vicryl and the and skin was stapled. Sponge and needle counts were correct on completion of the procedure. Blood loss was around 700 mL. The patient tolerated the procedure well and was transferred to recovery room in stable condition. The had been taken stable to the full-term nursery under the care of the pediatric nurse and with a biologic mom present. Job ID: [id number] DocumentID: [id number] Dictated Date: 11/12/2021 13:06:53 Corporate Development Analyst Date: 11/12/2021 23:05:33 Dictated By: ZULLY GARAY MD
[2021-11-13 00:38] VITALS: BP 102/59
[2021-11-13] MEDS: IBUPROFEN 800 MG (MOTRIN) TAB PO SCH ×4 (00:38→18:32)
[2021-11-13] MEDS: oxyCODONE/APAP 10/325MG (PERCOCET 10) TABLET PO PRN ×3 (00:39→17:01)
[2021-11-13 06:45] VITALS: BP 108/66
--- NOTE | 2021-11-13 08:16 | Anesthesia-Regional Post-Op ---
Regional Patient Condition Mental Status: Alert, Oriented x3 Circulation: Same as Pre-Op Headache: Absent Sensation: Full Recovery Motor Block: Absent Post Op Complications Complications None Follow Up Care/Instructions Patient Instructions None needed. Anesthesia/Patient Condition Patient is doing well, no complaints, stable vital signs, no apparent adverse anesthesia problems. No complications reported per nursing. D/C home per [facility] Criteria: Yes ALFRED CHONG CRNA Nov 13, 2021 08:16
--- NOTE | 2021-11-13 08:23 | Progress Note ---
Standard Progress Note Progress Notes/Assess & Plan Date Seen by a Provider: Nov 13, 2021 Time Seen by a Provider: 08:21 Progress/Assessment & Plan This patient is without complaint. She is ambulating, voiding, tolerating oral intake well and has good pain control. Vital Signs Date Time Temp Pulse Resp B/P (MAP) Pulse Ox O2 Delivery O2 Flow Rate FiO2 11/13/21 06:45 36.0 68 18 108/66 (80) 98 Room Air 11/13/21 00:38 36.2 67 18 102/59 (73) 97 Room Air 11/12/21 20:39 36.6 67 18 111/69 (83) 97 Room Air 11/12/21 20:28 96 Room Air 11/12/21 16:25 35.9 69 18 100/57 (71) 97 Room Air 11/12/21 14:20 35.8 88 18 129/73 (91) 99 Room Air 11/12/21 13:40 Room Air 11/12/21 13:40 36.4 20 140/83 (102) 98 Room Air 11/12/21 13:30 18 141/85 (103) 98 Room Air 11/12/21 13:28 Room Air 11/12/21 13:25 Room Air 11/12/21 13:20 18 143/91 (108) 98 Room Air 11/12/21 13:19 Room Air 11/12/21 13:10 20 142/90 (107) 98 Room Air 11/12/21 13:05 Room Air 11/12/21 13:00 20 136/97 (110) 98 Room Air 11/12/21 12:53 Room Air 11/12/21 12:53 36.2 22 141/80 (100) 98 Room Air I & O0 11/13/21 07:00 Intake Total 3190 ml Output Total 2050 ml Balance 1140 ml Vital signs are stable. Patient is afebrile. The abdomen is benign. The surgical incision is clean dry and intact and is covered with a compression band Extremities show no clubbing or cyanosis. There is no Homans' sign. Assessment and plan Postoperative day #1 status post repeat delivery at 37 weeks gestation. Patient is doing well The has been transferred to the NICU and is reportedly doing well ZULLY GARAY MD Nov 13, 2021 08:23
[2021-11-13 08:30] VITALS: BP 96/59
[2021-11-13] MEDS: DOCUSATE SODIUM 100 MG (COLACE) CAP PO SCH ×2 (08:45→20:02)
[2021-11-13 11:15] VITALS: BP 105/60
[2021-11-13] MEDS ORDERED: IBUPROFEN 800 MG (MOTRIN) TAB PO SCH (12:00)
[2021-11-13 16:45] VITALS: BP 97/53
[2021-11-13 20:00] VITALS: BP 109/66
[2021-11-14] MEDS: IBUPROFEN 800 MG (MOTRIN) TAB PO SCH ×3 (01:21→11:42)
[2021-11-14 01:22] VITALS: BP 110/64
[2021-11-14 06:35] VITALS: BP 105/60
[2021-11-14 08:15] VITALS: BP 112/66
[2021-11-14] MEDS: DOCUSATE SODIUM 100 MG (COLACE) CAP PO SCH (08:27)
--- NOTE | 2021-11-14 09:22 | Progress Note ---
Standard Progress Note Progress Notes/Assess & Plan Date Seen by a Provider: Nov 14, 2021 Time Seen by a Provider: 09:20 Progress/Assessment & Plan This patient is without complaint. She is ambulating, voiding, tolerating oral intake well and has good pain control. Vital Signs Date Time Temp Pulse Resp B/P (MAP) Pulse Ox O2 Delivery O2 Flow Rate FiO2 11/13/21 06:45 36.0 68 18 108/66 (80) 98 Room Air 11/13/21 00:38 36.2 67 18 102/59 (73) 97 Room Air 11/12/21 20:39 36.6 67 18 111/69 (83) 97 Room Air 11/12/21 20:28 96 Room Air 11/12/21 16:25 35.9 69 18 100/57 (71) 97 Room Air 11/12/21 14:20 35.8 88 18 129/73 (91) 99 Room Air 11/12/21 13:40 Room Air 11/12/21 13:40 36.4 20 140/83 (102) 98 Room Air 11/12/21 13:30 18 141/85 (103) 98 Room Air 11/12/21 13:28 Room Air 11/12/21 13:25 Room Air 11/12/21 13:20 18 143/91 (108) 98 Room Air 11/12/21 13:19 Room Air 11/12/21 13:10 20 142/90 (107) 98 Room Air 11/12/21 13:05 Room Air 11/12/21 13:00 20 136/97 (110) 98 Room Air 11/12/21 12:53 Room Air 11/12/21 12:53 36.2 22 141/80 (100) 98 Room Air I & O0 11/13/21 07:00 Intake Total 3190 ml Output Total 2050 ml Balance 1140 ml Vital signs are stable. Patient is afebrile. The abdomen is benign. The surgical incision is clean dry and intact and is covered with a compression band Extremities show no clubbing or cyanosis. There is no Homans' sign. Assessment and plan Postoperative day #1 status post repeat delivery at 37 weeks gestation. Patient is doing well The has been transferred to the NICU and is reportedly doing well November 14, 2021 This patient is without complaint. She is ambulating, voiding, tolerating oral intake well and has good pain control. Patient is requesting discharge home. Vital Signs Date Time Temp Pulse Resp B/P (MAP) Pulse Ox O2 Delivery O2 Flow Rate FiO2 11/14/21 08:15 36.5 72 18 112/66 (81) 97 Room Air 11/14/21 06:35 36.5 60 18 105/60 (75) 97 Room Air 11/14/21 01:22 36.2 60 18 110/64 (79) 97 Room Air 11/13/21 20:00 35.7 62 18 109/66 (80) 97 Room Air 11/13/21 16:45 36.5 61 18 97/53 (68) 99 Room Air 11/13/21 11:15 36.6 66 18 105/60 (75) 99 Room Air I & O 11/14/21 07:00 Intake Total 1500 ml Output Total 1000 ml Balance 500 ml Vital signs are stable. Patient is afebrile. Fundus is firm below the umbilicus and nontender. The surgical incision is clean dry and intact Extremities show no clubbing or cyanosis. There is no Homans' sign. Assessment and plan Postoperative day #2 status post repeat delivery at 37 weeks gestation for surrogate . Plan is for discharge home with follow-up in clinic Final Diagnosis 37-week repeat delivery ZULLY GARAY MD Nov 14, 2021 09:22
[2021-11-14 12:20] VITALS: BP 112/66
== END 2021-11-14 12:20 | disposition home or self-care (01) | DRG 786 ==
LOC: LDRP 10:02
PROVIDERS: ADMIT Obstetrics & Gynecology; ATTEND Obstetrics & Gynecology
PROC: 10D00Z1 Extraction of Products of Conception, Low, Open Approach (ICD-10-PCS; principal; 2021-11-12 12:05)
DX: O26.62 Liver and biliary tract disorders in childbirth (principal); K83.1 Obstruction of bile duct; O34.211 Maternal care for low transverse scar from previous cesarean delivery; Z37.0 Single live birth; Z3A.37 37 weeks gestation of pregnancy
CPT/HCPCS: 36415; 85025; 86850; 86900; 86901; 94664

== ENCOUNTER 2021-11-18 08:40 | Emergency (ER) | payer OTHER ==
[~2021-11-18] VITALS: Ht 154.9 cm; Wt 78.0 kg
--- NOTE | 2021-11-18 09:19 | ED Integumentary General ---
General Chief Complaint: Skin/Wound Problems Stated Complaint: C SECTION INCISION SITE BLEEDING Nursing Triage Note: PT AMB TO RM 7 A/O X4. PT STATED THAT SHE HAD A ON FRIDAY AND HER INCISION STARTED BLEEDING THIS MORNING. BED RAIL IS UP X1 AND CALL LIGHT IS IN REACH. Source: patient Exam Limitations: no limitations History of Present Illness Date Seen by Provider: Nov 18, 2021 Time Seen by Provider: 09:05 Initial Comments Patient is a 36-year-old female presents to the emergency room with chief complaint of bleeding from her section site. Patient had a on November 12. This was her fourth . She has been doing fine until this morning she woke up and noticed blood on her underwear. She has a little bit of increased pain at the area of the . She reports no fever. No redness around the wound. She has not taken anything for pain today. She has an appointment with Dr. GARAY tomorrow. No nausea, vomiting. No burning with urination. She has been a little constipated has only had 1 bowel movement since her . All other review of systems reviewed and negative except as stated Timing/Duration: this morning Severity: mild Possible Cause: other (post surgical) Associated Symptoms: denies symptoms Allergies and Home Medications Allergies Coded Allergies: No Known Drug Allergies (Unverified , 01/25/11) Patient Home Medication List Home Medication List Reviewed: Yes Omeprazole (Omeprazole) 20 Mg Capsule., 20 MG PO, (Reported) Entered as Reported by: MAMIE GASPAR on 11/06/211506 No.137/Iron/Folic Acd ( Vitamin Tablet) 27 Mg-0.8 Mg Tablet, 1 EACH PO, (Reported) Entered as Reported by: MAMIE GASPAR on 11/06/211506 Ursodiol (Ursodiol) 250 Mg Tablet, 250 MG PO UD, (Reported) Entered as Reported by: MAMIE GASPAR on 11/06/211506 Review of Systems Review of Systems Constitutional: see HPI Respiratory: no symptoms reported Cardiovascular: no symptoms reported Gastrointestinal: no symptoms reported Genitourinary: no symptoms reported Musculoskeletal: no symptoms reported Skin: other (incision site bleeding) All Other Systems Reviewed Negative Unless Noted: Yes Past Nnxkhvn-Ulfhtr-Lpcwlc Hx Patient Social History Tobacco Use?: No Substance use?: No Alcohol Use?: No Pt feels they are or have been: Unable to obtain Immunizations Up To Date Tetanus Booster (TDap): Unknown PED Vaccines UTD: No Influenza Vaccine Up-to-Date: No; Not Current Seasonal Allergies Seasonal Allergies: Yes Past Medical History Surgery/Hospitalization HX: 4 C SECTIONS GALLBLADDER REMOVED 2011 Surgeries: Yes (BMT, x3, D&C, GALLBLADDER) Respiratory: No Cardiac: No Neurological: No Reproductive Disorders: No Genitourinary: No Gastrointestinal: No Musculoskeletal: No Endocrine: No HEENT: No Cancer: No Psychosocial: Yes Anxiety Integumentary: No Blood Disorders: No Family Medical History Not obtainable due to adoption Physical Exam Vital Signs Vital Signs - First Documented 11/18/21 08:45 Temp 36.4 Pulse 97 Resp 14 B/P (MAP) 130/72 (91) Pulse Ox 99 O2 Delivery Room Air Capillary Refill : Less Than 3 Seconds General Appearance: WD/WN, no apparent distress Cardiovascular: regular rate, rhythm Respiratory: lungs clear, normal breath sounds, no respiratory distress, no accessory muscle use Gastrointestinal: non tender, soft Extremities: normal range of motion, normal inspection Neurologic/Psychiatric: alert, normal mood/affect, oriented x 3 Skin: normal color, warm/dry Skin Problem Location: other ( incision line looks good. She has 1/2 cm area almost directly in the middle that is slightly dehisced. There is "old blood" oozing at this point from the incision. mildly tender to palpation; no surrounding erythema. no purulence noted) Progress/Results/Core Measures Results/Orders Vital Signs/I&O 11/18/21 08:45 Temp 36.4 Pulse 97 Resp 14 B/P (MAP) 130/72 (91) Pulse Ox 99 O2 Delivery Room Air Blood Pressure Mean: 91 Progress Progress Note : Time: 09:57 Progress Note I initially cleaned the skin and just replaced the Steri-Strips however on recheck about 15 minutes later she was still bleeding. I removed the Steri- Strips that had again lifted due to the oozing of blood. Reexamined the dehisced portion of the wound. There was obvious blood clot sitting at the wound margins. I very gently with a pair of forceps removed obvious clot. Wound margins were reapproximated. Skin was cleansed again. Mastisol applied and Steri-Strips reapplied. Patient is comfortable with following up with Dr. GARAY tomorrow. I advised her to watch the wound closely for signs of infection. She verbalized understanding. All questions are sought and answered. Departure Impression Primary Impression: Wound dehiscence, Disposition: HOME, SELF-CARE Condition: Stable Departure-Patient Inst. Decision time for Depature: 09:18 Referrals: ZULLY GARAY MD (PCP/Family) Primary Care Physician Patient Instructions: Wound Incision and Drainage Add. Discharge Instructions: Keep the wound clean and dry and covered. It may continue to ooze a little bit. Continue your pain medications as prescribed by Dr. GARAY. Keep your appointment with him tomorrow. Return to the emergency department for any increased incisional pain especially if you note increasing redness around the incision, fever, pus like drainage or any other emergent concerning symptoms that develop. Copy Copies To 1: ZULLY GARAY MD, KATHRYN M MD Nov 18, 2021 09:19
[2021-11-18 10:11] VITALS: BP 127/86
== END 2021-11-18 10:11 | disposition home or self-care (01) ==
LOC: EDUNIT# 08:40 → ER 08:42
DX: O90.0 Disruption of cesarean delivery wound (principal); Z90.49 Acquired absence of other specified parts of digestive tract; Z28.310 Unvaccinated for COVID-19

== ENCOUNTER → 2021-12-21 | Outpatient (CLI) | payer OTHER ==
[~2021-12-21] MED LIST changes: +CATHETER FLUSH 10 ML SYR IV PRN; +HOLD METFORMIN - RECEIVED CONTRAST 20 ML VIAL IV SCH; +IOHEXOL 350 MG/ML 100 ML (OMNIPAQUE 350) VIAL IV ONE; +NS 100 ML (IVPB) BAG IV ONE
--- NOTE | 2021-12-21 09:04 | Diagnostic Imaging Report ---
CLINICAL INDICATION: Patient with shortness of air, chest palpitations. EXAM: CT scan of the chest performed with 74 mL of Omnipaque 350 IV contrast. Sagittal and coronal reformatted images are created. COMPARISON: Chest x-ray dated 12/09/2018. FINDINGS: Lungs are clear. There is no pleural effusion or pneumothorax. Mediastinal vasculature, mediastinal structures, and heart are unremarkable as visualized. Partially visualized portions of the thyroid gland shows no significant abnormality. Nonspecific multiple axillary lymph nodes are seen. There is no mediastinal or hilar lymphadenopathy. Visualized portions of the upper abdomen are unremarkable. Bones show no significant abnormality. IMPRESSION: Unremarkable CT scan of the chest. Results of this report was discussed with Angelina Castellanos APRN via the telephone on 12/21/2021 at 0858 hours. Dictated by: Dictated on workstation # [id number]
== END | disposition home or self-care (01) ==
LOC: RAD 08:07
PROVIDERS: ATTEND Nurse Practitioner Family
DX: R00.2 Palpitations (principal); R06.02 Shortness of breath; F41.1 Generalized anxiety disorder; R20.2 Paresthesia of skin; Z86.16 Personal history of COVID-19
CPT/HCPCS: 71260

== ENCOUNTER → 2022-03-05 | Outpatient (CLI) | payer OTHER ==
[~2022-03-05] MED LIST changes: -CATHETER FLUSH 10 ML SYR IV PRN; -HOLD METFORMIN - RECEIVED CONTRAST 20 ML VIAL IV SCH; -IOHEXOL 350 MG/ML 100 ML (OMNIPAQUE 350) VIAL IV ONE; -NS 100 ML (IVPB) BAG IV ONE
[2022-03-05 10:53] VITALS: BP 143/86
== END ==
LOC: CARD 09:53
PROVIDERS: ATTEND Nurse Practitioner Family
DX: R06.09 Other forms of dyspnea (principal); R07.89 Other chest pain
CPT/HCPCS: 93017; 93225; 93226; C8929; 93306